=== PATIENT | male | born 1950 | race Caucasian/White ===

== ENCOUNTER 2023-10-28 11:36 | Inpatient (IN) | payer OTHER ==
--- OUTSIDE RECORDS SUMMARY | 2023-10-28 14:39 | XMS REPORT | Continuity of Care Document ---
Author Name Unknown Address [address] [facility]. [address] [place] [address] [facility] Address [address] [facility] [address] [place] [address] Care Team Providers Care Electromedical Service Engineer Name Role Phone ASHLEY LANG Attending Clinician Unavailable Litzy Sanchez Attending Clinician Unavailab JANNA Nolan Attending Clinician Unavailable OPAL MARIE Attending Clinician NATHANAEL Kelley Attending Clinician UnavailONDINA Stevenson Attending Clinician Unavailable Miguel Ángel Attending Clinician Unavailable SUKUMAR LUNDBERG Attending Clinician Unavailable CASA HAGER Attending Clinician Unavailable ANGELA BLACKMAN Attending Clinician Unavailable GENOVEVA HAN Admitting Clinician Unavaila OPAL Portillo Admitting Clinician Lisa Del Rosario Admitting Clinician Unavailable Payers Payer Name Policy Type Policy Number Effective Date Expirati on Date Source [place] [id number] 2007 00:00:00 [place] [id number] 2014 00:00:00 Problems Condition Name Condition Details Condition Category Status Onset Date Resolution Date Last Treatment Date Treating Clinician Comments Source ILIAC WING FX ILIAC WING FX Active 06/28/2022 [facility] Diagnosis Active 2021-08 00:00: 00 2022-07-18 21:44:00 Braden Aguirre T SPINE FX T SPINE FX Active 06/28/2022 [facility] Diagnosis Active 2021-08 00:00: 00 2022-06-29 00:28:00 Braden Aguirre UNSP FRACTURE OF UNSP ILIUM, INIT ENCNTR UNSP FRACTURE OF UNSP ILIUM, INIT ENCNTR Active [facility] Diagnosis Active 2022-07-18 21:44:00 Braden Aguirre Social History Smoking Status Start Date Stop Date Source Tobacco smoking status Andrew Aguirre Medications Ordered Medication Name Filled Medication Name Start Date Stop Date Current Medication? 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, Height, 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, kg, 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, Weight Braden Aguirre naproxen 500 mg oral tablet 2021-08 16:28: 00 Yes 500 mg = 1 tab, PO, Q12H, X 14 day, # 28 tab, 0 Refill(s), Pharmacy: [facility], 167.64, cm, 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, Height, 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, kg, 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, Weight [facility]oria [facility] pantoprazol e 40 mg oral enteric coated tablet 2021-08 16:28: 00 Yes 40 mg = 1 tab, PO, Daily, # 30 tab, 0 Refill(s), Pharmacy: [facility], 167.64, cm, 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, Weight [facility] melatonin 3 mg oral tablet 2021-08 16:28: 00 Yes 3 mg = 1 tab, PO, Bedtime, PRN Sleep, X 14 day, # 60 tab, 0 Refill(s), Pharmacy: [facility], 167.64, cm, 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, Height, 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, kg, 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, Weight [facility] methocarbam ol 500 mg oral tablet 2021-08 16:28: 00 Yes 500 mg = 1 tab, PO, TID, X 14 day, # 42 tab, 0 Refill(s), Pharmacy: [facility], 167.64, cm, 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, Height, 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, kg, 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, Weight [facility] metoprolol tartrate 25 mg oral tablet 2021-08 16:28: 00 Yes 25 mg = 1 tab, PO, BID, # 60 tab, 0 Refill(s), Pharmacy: [facility], 167.64, cm, 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, Height, 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, kg, 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, Weight [facility] naproxen 500 mg oral tablet 2021-08 16:28: 00 Yes 500 mg = 1 tab, PO, Q12H, X 14 day, # 28 tab, 0 Refill(s), Pharmacy: [facility], 167.64, cm, 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, Height, 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, kg, 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, Weight [facility] pantoprazol e 40 mg oral enteric coated tablet 2021-08 16:28: 00 Yes 40 mg = 1 tab, PO, Daily, # 30 tab, 0 Refill(s), Pharmacy: [facility], 167.64, cm, 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, Weight [facility] melatonin 3 mg oral tablet 2021-08 16:28: 00 Yes 3 mg = 1 tab, PO, Bedtime, PRN Sleep, X 14 day, # 60 tab, 0 Refill(s), Pharmacy: [facility], 167.64, cm, 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, Height, 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, kg, 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, Weight [facility] gabapentin 300 mg oral capsule 2021-08 16:27: 00 Yes 300 mg = 1 cap, PO, Q8H, # 63 cap, 0 Refill(s), Pharmacy: [facility], 167.64, cm, 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 (Same As: Ecotrin) [facility] sertraline 2021-08 15:00: 00 No Notes: (Same as: Zoloft) [facility] clopidogrel 2021-08 15:00: 00 No Notes: (Same As: Plavix) [facility] [place] [place] [facility] lisinopril 2021-08 15:00: 00 No Notes: (Same as: Prinivil, Zestril) [facility] aspirin 2021-08 15:00: 00 No Notes: Do not crush or chew. (Same As: Ecotrin) Memyamel Aguirre sertraline 2021-08 15:00: 00 No Notes: (Same as: Zoloft) Memyamel Aguirre clopidogrel 2021-08 15:00: 00 No Notes: (Same As: Plavix) [facility] Timothy lisinopril 2021-08 15:00: 00 No Notes: (Same as: Prinivil, Zestril) Memyamel Aguirre melatonin 2021-08 08:42: 00 No Notes: (Same as: Melatonin) Memyamel Clarkann melatonin 2021-08 08:42: 00 No Notes: (Same as: Melatonin) Braden Clarkann remove patch 2021-08 03:00: 00 No Notes: Remove patch 12 hours after applicatio n each day. Braden Clarkann remove patch 2021-08 03:00: 00 No Notes: Remove patch 12 hours after applicatio n each day. Memyamel Clarkann enoxaparin 2021-08 23:00: 00 No Notes: (Same as: Lovenox) [facility] [place] [facility] enoxaparin 2021-08 23:00: 00 No Notes: (Same as: Lovenox) Braden Aguirre Robaxin 2021-08 19:00: 00 No Notes: (Same as:Robaxin ) [facility] [place] [facility] Robaxin 2021-08 19:00: 00 No Notes: (Same as:Robaxin ) Memyamel Clarkann lidocaine 4% topical film 2021-08 18:00: 00 No Notes: Patch is applied to intact skin to cover painful area for up to 12 hours in a 24-hour period (12 hours on and 12 hours off). Please indicate the location of applicatio n site. Site 1: Remove old patch before applicatio n of new patch. (Same as Aspercreme Lidocaine Patch) Memyamel Clarkann lidocaine 4% topical film 2021-08 18:00: 00 No Notes: Patch is applied to intact skin to cover painful area for up to 12 hours in a 24-hour period (12 hours on and 12 hours off). Please indicate the location of applicatio n site. Site 1: Remove old patch before applicatio n of new patch. (Same as Aspercreme Lidocaine Patch) Memyamel Aguirre metoprolol tartrate 2021-08 15:00: 00 No Notes: (Same as: Lopressor) [facility] [place] [place] [facility] naproxen 2021-08 15:00: 00 No Notes: (Same as: Naprosyn) Take with food. Memyamel Aguirre pantoprazol e 2021-08 15:00: 00 No Notes: Tablet should not be chewed or crushed. (Same as: Protonix) Memyamel Aguirre metoprolol tartrate 2021-08 15:00: 00 No Notes: (Same as: Lopressor) [facility] [place] [place] [facility] naproxen 2021-08 15:00: 00 No Notes: (Same as: Naprosyn) Take with food. Memyamel Aguirre pantoprazol e 2021-08 15:00: 00 No Notes: Tablet should not be chewed or crushed. (Same as: Protonix) Braden Aguirre lisinopril 10 mg oral tablet 2021-08 14:28: 00 Yes PO, TAKE ONE (1) TABLET(S) BY MOUTH ONCE A DAY., # 90 tab Memyamel Aguirre atorvastati n 40 mg oral tablet 2021-08 14:28: 00 Yes PO, TAKE 1 TABLET BY MOUTH ONCE DAILY, # 90 tab Braden Aguirre lisinopril 10 mg oral tablet 2021-08 14:28: 00 Yes PO, TAKE ONE (1) TABLET(S) BY MOUTH ONCE A DAY., # 90 tab Braden Aguirre atorvastati n 40 mg oral tablet 2021-08 14:28: 00 Yes PO, TAKE 1 TABLET BY MOUTH ONCE DAILY, # 90 tab Braden Clarkann clopidogrel 75 mg oral tablet 2021-08 14:28: 00 Yes PO, TAKE ONE (1) TABLET(S) BY MOUTH ONCE A DAY., # 90 tab Braden Aguirre clopidogrel 75 mg oral tablet 2021-08 14:28: 00 Yes PO, TAKE ONE (1) TABLET(S) BY MOUTH ONCE A DAY., # 90 tab Braden Aguirre cyclobenzap rine 10 mg oral tablet 2021-08 14:28: 00 No PO, TAKE ONE (1) TABLET(S) BY MOUTH TWICE A DAY NEEDED., # 60 tab Braden l Timothy gabapentin 100 mg oral capsule 2021-08 14:28: 00 No PO, TAKE ONE (1) CAPSULE BY MOUTH 2 TIMES A DAY., # 180 cap Braden Aguirre cyclobenzap rine 10 mg oral tablet 2021-08 14:28: 00 No PO, TAKE ONE (1) TABLET(S) BY MOUTH TWICE A DAY NEEDED., # 60 tab [facility]aden [facility] [place] [facility] gabapentin 100 mg oral capsule 2021-08 14:28: 00 No PO, TAKE ONE (1) CAPSULE BY MOUTH 2 TIMES A DAY., # 180 cap Braden l [facility] [place] [facility] enoxaparin 2021-08 06:00: 00 No Notes: (Same as: Lovenox) [facility] [place] [place] [facility] enoxaparin 2021-08 06:00: 00 No Notes: (Same as: Lovenox) Braden l Timothy acetaminoph en 2021-08 05:23: 00 No Notes: Max acetaminop hen 4000 mg/day (4 gm/day). (Same as: Tylenol Extra Strength) [facility] [place] [place] [facility] gabapentin 2021-08 05:23: 00 No Notes: (Same as: Neurontin) [facility] [place] [facility] acetaminoph en 2021-08 05:23: 00 No Notes: Max acetaminop hen 4000 mg/day (4 gm/day). (Same as: Tylenol Extra Strength) [facility] [place] [facility] gabapentin 2021-08 05:23: 00 No Notes: (Same as: Neurontin) [facility] morphine Sulfate 2021-08 03:24: 00 No Notes: (Same as:MORPhin e Sulfate) [facility] morphine Sulfate 2021-08 03:24: 00 No Notes: (Same as:MORPhin e Sulfate) [facility] Saline Flush 0.9% 2021-08 00:58: 00 No Notes: Same as: BD Posiflush Sterile [facility] morphine Sulfate 2021-08 00:58: 00 No Notes: (Same as:MORPhin e Sulfate) [facility] [place] [facility] ondansetron 2021-08 00:58: 00 No Notes: (Same as: Dione) MEDICATION WASTE Product Size: 4 mg Product Wasted: ___ mg [facility] [place] [place] [facility] Saline Flush 0.9% 2021-08 00:58: 00 No Notes: Same as: BD Posiflush Sterile [facility] [place] [place] [facility] morphine Sulfate 2021-08 00:58: 00 No Notes: (Same as:MORPhin e Sulfate) [facility] ondansetron 2021-08 00:58: 00 No Notes: (Same as: Dione) MEDICATION WASTE Product Size: 4 mg Product Wasted: ___ mg [facility] [place] [facility] Vital Signs Vital Name Observation Time Observation Value Comments S ource Height 2022-06-30 16:59:00 5 [ft_i] [facility] [place] [facility] Weight 2022-06-30 16:59:00 [facility] [place] [place] [facility] Heart Rate 2022-06-30 14:04:56 [facility] [place] [place] [facility] Temperature Oral (F) 2022-06-30 14:04:37 98.1 F [facility] Systolic (mm Hg) 2022-06-30 14:04:17 [facility] Diastolic (mm Hg) 2022-06-30 14:04:17 [facility] Heart Rate 2022-06-30 14:04:17 [facility] [place] [facility] Heart Rate 2022-06-30 09:14:22 [facility] Respitory Rate 2022-06-30 09:14:22 [facility] Systolic (mm Hg) 2022-06-30 09:14:17 [facility] Diastolic (mm Hg) 2022-06-30 09:14:17 [facility] Temperature Oral (F) 2022-06-30 09:14:08 97.4 F [facility] Respitory Rate 2022-06-30 05:58:33 [facility] Systolic (mm Hg) 2022-06-30 05:58:30 [facility] [place] [facility] Diastolic (mm Hg) 2022-06-30 05:58:30 [facility] [place] [facility] Temperature Oral (F) 2022-06-30 05:58:08 98 F [facility] Respitory Rate 2022-06-30 01:40:43 [facility] Height 2022-06-29 11:32:00 167.64 cm [facility] Weight 2022-06-29 11:32:00 [facility] BMI Calculated 2022-06-29 11:32:00 [facility] Height 2022-06-28 23:35:00 167.64 cm [facility] BMI Calculated 2022-06-28 23:35:00 [facility] Weight 2022-06-28 23:35:00 [facility] [place] [facility] Encounters Start Date/Time End Date/Time Encounter Type Admission Type Attending [facility] Facility Care Department Encounter ID Source 2023-10-09 23:27:00 2023-10-28 13:02:00 Inpatient ASHLEY SMITH [facility] MED [id number] [address] [place] [address] 2023-10-09 12:55:00 2023-10-09 15:17:00 Emergency ER Litzy Sanchez [facility] [id number] [facility] 2023-10-09 12:55:00 2023-10-09 15:17:00 emergency [facility] [id number] 2023-10-08 08:43:00 2023-10-08 08:43:00 Outpatient EL DJANNA MOYA [facility] [id number] [facility] 2023-07-05 08:57:00 2023-07-05 08:57:00 Outpatient EL D'CORTESJANNA Hester [facility] [id number] [facility] 2023-03-29 09:20:00 2023-03-29 09:20:00 Outpatient EL DJANNA MOYA [facility] [id number] [facility] 2022-12-20 08:27:00 2022-12-20 08:27:00 Outpatient MAURO DJANNA MOYA [facility] [id number] [facility] 2022-10-01 08:31:00 2022-10-01 08:31:00 Outpatient EL DGRIFFIN JANNA [facility] [id number] [facility] 2022-07-02 14:07:00 2022-07-02 14:07:00 Outpatient MAURO DJANNA MOYA [facility] [id number] [facility] 2022-06-28 23:35:00 2022-06-30 23:00:00 Observatio n [facility] [id number] [facility] 2022-06-28 15:23:00 2022-06-30 17:00:00 Outpatient OPAL SIMON [facility] [id number] [facility] 2022-06-28 10:58:00 2022-06-28 16:08:00 emergency [id number] 31 2022-06-28 10:58:00 2022-06-28 16:08:00 Emergency TR NATHANAEL CASTANON [facility] [id number] [facility] 2022-03-23 12:57:00 2022-03-23 12:57:00 Outpatient ONDINA GEORGE [facility] [id number] [facility] 2022-03-02 09:14:00 2022-03-02 09:14:00 Outpatient EL D'CORTESSARITHATA [facility] [id number] [facility] 2021-11-07 10:10:00 2021-11-07 10:10:00 Outpatient EL D'CORTESSARITHATA [facility] [id number] [facility] 2021-11-03 09:28:00 2021-11-03 09:28:00 Outpatient EL D'CORTESSARITHATA [facility] [id number] [facility] 2021-10-25 09:09:00 2021-10-25 09:09:00 Outpatient EL D'CORTESSARITHA HesterTA [facility] [id number] [facility] 2021-07-24 09:12:00 2021-07-24 09:12:00 Outpatient EL D'CORTES JANNA [facility] [id number] [facility] 2021-06-14 12:34:00 2021-06-14 12:34:00 Outpatient EL D'CORTESSARITHATA [facility] [id number] [facility] 2021-04-24 08:53:00 2021-04-24 08:53:00 Outpatient EL D'CORTESSARITHA HesterTA [facility] [id number] [facility] 2021-01-13 08:44:00 2021-01-13 08:44:00 Outpatient EL D'CORTESJANNA [facility] [id number] [facility] 2020-10-13 09:01:00 2020-10-13 09:01:00 Outpatient UR D'JANNA CORTES [facility] [id number] [facility] 2020-10-03 09:31:00 2020-10-03 09:31:00 Outpatient EL D'CORTESJANNA Hester [facility] [id number] [facility] 2020-09-03 12:05:00 2020-09-03 12:05:00 Outpatient EL D'CORTESJANNA Hester [facility] [id number] [facility] 2020-06-23 08:02:00 2020-06-23 08:02:00 Outpatient EL DJANNA MOYA [facility] [id number] [facility] 2020-06-22 02:24:00 2020-06-22 02:24:00 Outpatient Young_J MMG [facility] [id number] [facility] 2020-05-25 08:53:00 2020-05-25 08:53:00 Outpatient EL D'JANNA CORTES [facility] [id number] [facility] 2019-08-27 08:56:00 2019-08-27 08:56:00 Outpatient EL D'JANNA CORTES [facility] [id number] [facility] 2019-08-12 07:37:00 2019-08-12 07:37:00 Outpatient ONDINA KNOWLES [facility] [id number] [facility] 2019-05-21 08:59:00 2019-05-21 08:59:00 Outpatient EL DJANNA MOYA [facility] [id number] [facility] 2019-03-04 08:09:00 2019-03-04 08:09:00 Outpatient EL D'SARITHA CORTESTA [facility] [id number] [facility] 2018-12-24 09:40:00 2018-12-24 09:40:00 Outpatient EL DJANNA MOYA [facility] [id number] [facility] 2018-12-01 08:51:00 2018-12-01 08:51:00 Outpatient EL D'CORTESJANNA Hester [facility] [id number] [facility] 2018-09-02 09:14:00 2018-09-02 09:14:00 Outpatient EL D'CORTESJANNA Hester [facility] [id number] [facility] 2018-06-04 09:48:00 2018-06-04 09:48:00 Outpatient EL D'JANNA CORTES [facility] [id number] [facility] 2018-04-09 08:02:00 2018-04-09 08:02:00 Outpatient ONDINA KNOWLES [facility] [id number] [facility] 2018-02-28 08:30:00 2018-02-28 08:30:00 Outpatient MAURO DJANNA MOYA [facility] [id number] [facility] 2017-11-22 08:33:00 2017-11-22 08:33:00 Outpatient EL D'JANNA CORTES [facility] [id number] [facility] 2017-08-30 08:45:00 2017-08-30 08:45:00 Outpatient EL D'JANNA CORTES [facility] [id number] [facility] 2017-07-12 01:28:00 2017-07-12 01:28:00 Outpatient Miguel Ángel HUTCHINSON [facility] [id number] [facility] 2017-06-17 08:32:00 2017-06-17 08:32:00 Outpatient SUKUMAR SMITH [facility] [id number] [facility] 2017-05-27 09:44:00 2017-05-27 09:44:00 Outpatient EL DJANNA MOYA [facility] [id number] [facility] 2017-05-20 08:23:00 2017-05-20 08:23:00 Outpatient SUKUMAR SMITH [facility] [id number] [facility] 2017-02-19 08:07:00 2017-02-19 08:07:00 Outpatient EL D'CORTESAJNNA Hester [facility] [id number] [facility] 2016-08-01 08:37:00 2016-08-01 08:37:00 Outpatient EL D'CORTESJANNA Hester [facility] [id number] [facility] 2016-05-09 08:58:00 2016-05-09 08:58:00 Outpatient EL D'JANNA CORTES [facility] [id number] [facility] 2016-04-02 08:49:00 2016-04-02 08:49:00 Outpatient ONDINA KNOWLES [facility] [id number] [facility] 2016-02-10 08:35:00 2016-02-10 08:35:00 Outpatient EL D'CORTESJANNA Hester [facility] [id number] [facility] 2015-11-08 08:57:00 2015-11-08 08:57:00 Outpatient EL DJANNA MOYA [facility] [id number] [facility] 2015-08-01 08:35:00 2015-08-01 08:35:00 Outpatient EL D'CORTESJANNA Hester [facility] [id number] [facility] 2015-05-16 11:20:00 2015-05-16 11:20:00 Outpatient ONDINA KNOWLES [facility] [id number] [facility] 2015-04-18 08:35:00 2015-04-18 08:35:00 Outpatient EL JANNA LIMON [facility] [id number] [facility] 2014-11-22 08:29:00 2014-11-22 08:29:00 Outpatient MAURO LIMON JANNA [facility] [id number] [facility] 2014-11-02 09:03:00 2014-11-02 09:03:00 Outpatient EL JANNA LIMON [facility] [id number] [facility] 2014-07-06 08:58:00 2014-07-06 08:58:00 Outpatient CASA PATHAK [facility] [id number] [facility] 2014-01-13 09:05:00 2014-01-13 09:05:00 Outpatient MAURO LIMON JANNA [facility] [id number] [facility] 2013-06-13 08:48:00 2013-06-13 08:48:00 Outpatient MAURO LIMON AJNNA [facility] [id number] [facility] 2005-08-31 09:17:00 2005-08-31 09:17:00 Outpatient ANGELA MAST [facility] [id number] [facility] Results Test Description Test Time Test Comments Results Result Co mments Source [facility] [facility]MsrmwawIDDGAI0580-54-40 19:33:34* Test Item Value Reference Range Interpretation Comme nts RADRPT (test code = RADRPT) EXAM: XR LUMBAR SPINE 2 VIEWSDATE: 06/29/2022 4:57INDICATION: - Uprights out of brace when ableNondisplaced left transverse process fractures of L3 and L4. Nondisplaced fracture of the L5 spinous process also seen by CT.COMPARISON: None.TECHNIQUE: AP and lateral radiographs of the lumbar spine.FINDINGS: 5 lumbar type, non-rib bearing vertebral bodies are present. Vertebral body heights are preserved. Mild degenerative disc disease throughout the lumbar spine with the largest anterior osteophytes at L2-3. There is scoliosis convex to the left centered at L3. Alignment is otherwise normal. The fractures of the vertebral appendages seen by CT are not visible on these radiographs.Abdominal aortic aneurysm with extensive calcified atherosclerosis in the abdominal aorta and the iliac arteries noted.IMPRESSION: Left L3 and L4 transverse process fractures and left L5 spinous process fracture are not visible on these radiographs. Alignment of the lumbar spine remains normal. [place] [id number] 17:35:22* Test Item Value Reference Range Interpretation Comme nts RADRPT (test code = RADRPT) EXAM: XR LEFT SHOULDER 3 VIEWS DATE: 06/29/2022 9:41INDICATION: - painCOMPARISON: None.TECHNIQUE: 3 views of the shoulderFINDINGS: No acute fracture or malalignment is identified. There is osteophyte formation of the acromioclavicular joint. Significant reduction in the acromiohumeral distance.No soft tissue abnormality is identified.IMPRESSION: No acute abnormality. Acromioclavicular and glenohumeral joint degenerative changes with reduction acromion humeral distance. Consider chronic rotator cuff injury. [place] [id number] 17:35:22* Test Item Value Reference Range Interpretation Comme nts RADRPT (test code = RADRPT) EXAM: XR LEFT SHOULDER 3 VIEWS DATE: 06/29/2022 9:41INDICATION: - painCOMPARISON: None.TECHNIQUE: 3 views of the shoulderFINDINGS: No acute fracture or malalignment is identified. There is osteophyte formation of the acromioclavicular joint. Significant reduction in the acromiohumeral distance.No soft tissue abnormality is identified.IMPRESSION: No acute abnormality. Acromioclavicular and glenohumeral joint degenerative changes with reduction acromion humeral distance. Consider chronic rotator cuff injury. [place] [id number] 16:52:03* Test Item Value Reference Range Interpretation Comme nts RADRPT (test code = RADRPT) EXAM: XR RIGHT FOOT 3 VIEWSDATE: 06/29/2022 9:41INDICATION: - painCOMPARISON: NoneTECHNIQUE: AP, lateral and oblique radiographs of the footFINDINGS: No acute fracture or malalignment is identified. Calcaneal enthesopathy is present.No soft tissue abnormality is identified.IMPRESSION:1. No acute abnormality.2. Calcaneal enthesophytes. [facility]IgxlaqzBDXOTH8017-33-65 16:52:03* Test Item Value Reference Range Interpretation Comme [facility] RADRPT (test code = RADRPT) EXAM: XR RIGHT FOOT 3 VIEWSDATE: 06/29/2022 9:41INDICATION: - painCOMPARISON: NoneTECHNIQUE: AP, lateral and oblique radiographs of the footFINDINGS: No acute fracture or malalignment is identified. Calcaneal enthesopathy is present.No soft tissue abnormality is identified.IMPRESSION:1. No acute abnormality.2. Calcaneal enthesophytes. [facility]neBHCLHX6357-69-14 15:49:53* Test Item Value Reference Range Interpretation Comme [facility] RADRPT (test code = RADRPT) EXAM: CT CHEST WITH CONTRASTEXAM: CT ABDOMEN AND PELVIS WITH CONTRASTDATE: 06/29/2022 0:12 INDICATION: Outside study.ADDITIONAL INFORMATION: 72 M w history of HTN and CAD with CABG present as a Transfer s/p fall while mowing his lawn, 1 day prior to presentation reports pain in his flanks and lower back. COMPARISON: NoneEXAM INFORMATION: Outside [place] examination [place] [facility] [place]. Axial CT images of the chest, abdomen, and pelvis were obtained. Coronal and sagittal reformatted images are provided. There is interval performance mid L1 is uploaded to PACS the study images. FINDINGS: FINDINGS:Lines, tubes, hardware: Surgical sternotomy wires seen in place.Lower Neck: Supraclavicular soft tissues are unremarkable. Thyroid gland is unremarkable.Thoracic Aorta and Mediastinum: Aberrant right subclavian artery. Mediastinal lymphadenopathy measuring up to 1.2 cm in the pretracheal region (2:39). Status post CABG with normal heart size. No pericardial effusion. Normal caliber of both pulmonary trunk 2.5 cm and ascending aorta 3.2 cm measuring the same level. Severe atherosclerotic calcification of the aortic arch, coronary arteries.Lungs, Pleura, Diaphragm: Subpleural and peripheral cystic changes particularly at the apices. Peripheral reticular opacities greater at the lung bases. Mild bronchiectasis and bronchial wall thickening. Patchy peripheral areas of groundglass and consolidation in the right greater than left lower lobes are not typical of contusion and may relate to atelectasis, infection, or aspiration. No pneumothorax. No pleural effusion.Other chest: Mild left axillary lymphadenopathy for example 9 mm subpectoral lymph node on 2:29.Liver and biliary tree: No evidence of injury. No biliary abnormality. Gallbladder: Single small stone within the gallbladder.Pancreas: No evidence of injury.Spleen: No evidence of injury. Adrenals: Normal morphology.Kidneys and ureters: No evidence of injury. Vascular calcifications present. No hydronephrosis. Symmetric enhancement.Bladder: Partially distended and unremarkable.Reproductive organs: Central prostatic calcification.Gastrointesti nal tract: Localized area of heterogeneous increased attenuation within the fat along mesenteric vessels in the left abdomen right abdomen compatible with mesenteric injury. No changes in the bowel to suggest bowel injury.Peritoneum and retroperitoneum: No fluid collections or free air.Lymph nodes: No lymphadenopathy in the abdomen or pelvis..Vasculature: 3.6 cm infrarenal fusiform abdominal aortic aneurysm with partial thrombosis. Severe atherosclerotic calcification of the abdominal aorta and branches. Thrombosed saccular aneurysm versus intramural hematoma along the right common iliac artery (2:190). Spine/ Bones: Nondisplaced fracture of the posterior left iliac bone at the level of the SI joint. Nondisplaced acute fracture of the left transverse process at L3 and L4. Additional nondisplaced fracture of the spinous process of L5. Soft tissues: Gas is noted within the musculature lateral to the left scapula, likely related to trauma. Stranding present in the subcutaneous fat laterally at the left hip and posteriorly at the left flank which may represent contusion.IMPRESSION: 1. Acute nondisplaced fracture of the left iliac wing at the level of the sacroiliac joint. Also fractures of the left transverse processes of L3 and L4 and of the spinous process of L5.1. Localized stranding in the mesentery in the right lower quadrant. Compatible with mesenteric injury in the setting of trauma. 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 Superficial contusion laterally at the left hip and posteriorly over the left flank. Gas within musculature lateral to the left scapula is also favored traumatic in origin.3. Bilateral lower lobe right greater than left patchy groundglass opacities. May represent atelectasis, infection, or and/or aspiration. Appearance not typical of contusion. 4. Infrarenal abdominal aortic aneurysm (3.6 cm) and small thrombosed saccular aneurysm versus intramural hematoma at the right common iliac artery.5. Mild left axillary and mediastinal lymphadenopathy, indeterminate.6. Additional incidental findings detailed above. [facility] PoyedixANFNDP2542-57-52 15:49:53* Test Item Value Reference Range Interpretation Comme nts RADRPT (test code = RADRPT) EXAM: CT CHEST WITH CONTRASTEXAM: CT ABDOMEN AND PELVIS WITH CONTRASTDATE: 06/29/2022 0:12 INDICATION: Outside study.ADDITIONAL INFORMATION: 72 M w history of HTN and CAD with CABG present as a Transfer s/p fall while mowing his lawn, 1 day prior to presentation reports pain in his flanks and lower back. COMPARISON: NoneEXAM INFORMATION: [place] [facility]. Axial CT images of the chest, abdomen, and pelvis were obtained. Coronal and sagittal reformatted images are provided. There is interval performance mid L1 is uploaded to PACS the study images. FINDINGS: FINDINGS:Lines, tubes, hardware: Surgical sternotomy wires seen in place.Lower Neck: Supraclavicular soft tissues are unremarkable. Thyroid gland is unremarkable.Thoracic Aorta and Mediastinum: Aberrant right subclavian artery. Mediastinal lymphadenopathy measuring up to 1.2 cm in the pretracheal region (2:39). Status post CABG with normal heart size. No pericardial effusion. Normal caliber of both pulmonary trunk 2.5 cm and ascending aorta 3.2 cm measuring the same level. Severe atherosclerotic calcification of the aortic arch, coronary arteries.Lungs, Pleura, Diaphragm: Subpleural and peripheral cystic changes particularly at the apices. Peripheral reticular opacities greater at the lung bases. Mild bronchiectasis and bronchial wall thickening. Patchy peripheral areas of groundglass and consolidation in the right greater than left lower lobes are not typical of contusion and may relate to atelectasis, infection, or aspiration. No pneumothorax. No pleural effusion.Other chest: Mild left axillary lymphadenopathy for example 9 mm subpectoral lymph node on 2:29.Liver and biliary tree: No evidence of injury. No biliary abnormality. Gallbladder: Single small stone within the gallbladder.Pancreas: No evidence of injury.Spleen: No evidence of injury. Adrenals: Normal morphology.Kidneys and ureters: No evidence of injury. Vascular calcifications present. No hydronephrosis. Symmetric enhancement.Bladder: Partially distended and unremarkable.Reproductive organs: Central prostatic calcification.Gastrointesti nal tract: Localized area of heterogeneous increased attenuation within the fat along mesenteric vessels in the left abdomen right abdomen compatible with mesenteric injury. No changes in the bowel to suggest bowel injury.Peritoneum and retroperitoneum: No fluid collections or free air.Lymph nodes: No lymphadenopathy in the abdomen or pelvis..Vasculature: 3.6 cm infrarenal fusiform abdominal aortic aneurysm with partial thrombosis. Severe atherosclerotic calcification of the abdominal aorta and branches. Thrombosed saccular aneurysm versus intramural hematoma along the right common iliac artery (2:190). Spine/ Bones: Nondisplaced fracture of the posterior left iliac bone at the level of the SI joint. Nondisplaced acute fracture of the left transverse process at L3 and L4. Additional nondisplaced fracture of the spinous process of L5. Soft tissues: Gas is noted within the musculature lateral to the left scapula, likely related to trauma. Stranding present in the subcutaneous fat laterally at the left hip and posteriorly at the left flank which may represent contusion.IMPRESSION: 1. Acute nondisplaced fracture of the left iliac wing at the level of the sacroiliac joint. Also fractures of the left transverse processes of L3 and L4 and of the spinous process of L5.1. Localized stranding in the mesentery in the right lower quadrant. Compatible with mesenteric injury in the setting of trauma. 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 Superficial contusion laterally at the left hip and posteriorly over the left flank. Gas within musculature lateral to the left scapula is also favored traumatic in origin.3. Bilateral lower lobe right greater than left patchy groundglass opacities. May represent atelectasis, infection, or and/or aspiration. Appearance not typical of contusion. 4. Infrarenal abdominal aortic aneurysm (3.6 cm) and small thrombosed saccular aneurysm versus intramural hematoma at the right common iliac artery.5. Mild left axillary and mediastinal lymphadenopathy, indeterminate.6. Additional incidental findings detailed above. [facility] HospitalRdumtahGJTHMBEDXB9110-68-14 12:40:00* Test Item Value Reference Range Interpretation Comme nts Platelet (test code = Platelet) 189 133-450 [facility]qqhpglJVPVEGOIDZ3797-24-99 12:40:00* Test Item Value Reference Range Interpretation Comme nts MPV (test code = MPV) 9.6 7.4-10.4 [facility]2022-11-25 12:40:00* Test Item Value Reference Range Interpretation Comme nts Glucose Lvl (test code = Glucose Lvl) 115 70-99 [facility]2022-11-25 12:40:00* Test Item Value Reference Range Interpretation Comme nts BUN (test code = BUN) 18 7-22 [facility]2022-11-25 12:40:00* Test Item Value Reference Range Interpretation Comme nts Creatinine Lvl (test code = Creatinine Lvl) 0.85 0.50-1.40 [facility]2022-11-25 12:40:00* Test Item Value Reference Range Interpretation Comme nts Sodium Lvl (test code = Sodium Lvl) 137 135-145 [facility]2022-11-25 12:40:00* Test Item Value Reference Range Interpretation Comme nts Potassium Lvl (test code = P otassium Lvl) 3.8 3.5-5.1 [facility]2022-11-25 12:40:00* Test Item Value Reference Range Interpretation Comme nts Chloride Lvl (test code = Chloride Lvl) 104 95-109 [facility]2022-11-25 12:40:00* Test Item Value Reference Range Interpretation Comme nts CO2 (test code = CO2) 23 24-32 [facility]2022-11-25 12:40:00* Test Item Value Reference Range Interpretation Comme nts Calcium Lvl (test code = Calcium Lvl) 9.1 8.5-10.5 [facility]2022-11-25 12:40:00* Test Item Value Reference Range Interpretation Comme nts AGAP (test code = AGAP) 13.8 10.0-20.0 [facility]2022-11-25 12:40:00* Test Item Value Reference Range Interpretation Comme nts eGFR (test code = eGFR) 91 [facility] TaylorJaiqzxlAUDLKGGYK1060-51-55 12:40:00* Test Item Value Reference Range Interpretation Comme nts Glucose Lvl (test code = Glucose Lvl) 115 70-99 [facility] TaylorKpltrvtZKXTRTQEO1855-28-86 12:40:00* Test Item Value Reference Range Interpretation Comme nts BUN (test code = BUN) 18 7-22 [facility] TaylorWooxwddBDPTFGDUO0737-72-35 12:40:00* Test Item Value Reference Range Interpretation Comme nts Creatinine Lvl (test code = Creatinine Lvl) 0.85 0.50-1.40 [facility] TaylorJxnbmnwYHOGWLVBV8136-99-34 12:40:00* Test Item Value Reference Range Interpretation Comme nts Sodium Lvl (test code = Sodium Lvl) 137 135-145 [facility] TaylorRydmirdIHBVJGKKC5588-16-14 12:40:00* Test Item Value Reference Range Interpretation Comme nts Potassium Lvl (test code = P otassium Lvl) 3.8 3.5-5.1 [facility] TaylorPdicnerHAPQDPZRM3575-98-67 12:40:00* Test Item Value Reference Range Interpretation Comme nts Chloride Lvl (test code = Chloride Lvl) 104 95-109 [facility] TaylorTuubljaMROZXAGWE2031-46-72 12:40:00* Test Item Value Reference Range Interpretation Comme nts CO2 (test code = CO2) 23 24-32 [facility] TaylorNoyzpccSGNKSINRC9995-82-94 12:40:00* Test Item Value Reference Range Interpretation Comme nts Calcium Lvl (test code = Calcium Lvl) 9.1 8.5-10.5 [facility] TaylorDvmgohzVGDYEVQRC0435-34-80 12:40:00* Test Item Value Reference Range Interpretation Comme nts AGAP (test code = AGAP) 13.8 10.0-20.0 [facility] TaylorSsvgquxLCKLHGRKZ6235-46-53 12:40:00* Test Item Value Reference Range Interpretation Comme nts eGFR (test code = eGFR) 91 [facility] HospitalQhkbfdwMLUUDCNBWP0633-20-91 12:40:00* Test Item Value Reference Range Interpretation Comme nts Segs (test code = Segs) 72.0 45.0-75.0 [facility] HospitalDihifftKICIBNAFBO6056-52-25 12:40:00* Test Item Value Reference Range Interpretation Comme nts Lymphocytes (test code = Lymphocytes) 16.7 20.0-40.0 [facility] HospitalDmdhxvvLLYLDWKUMI7598-07-45 12:40:00* Test Item Value Reference Range Interpretation Comme nts Monocytes (test code = Monocytes) 6.3 2.0-12.0 [facility] HospitalSyarakzSCKGPJVRIK3508-39-72 12:40:00* Test Item Value Reference Range Interpretation Comme nts Eosinophils (test code = Eosinophils) 4.5 <=4.0 [place] 173692-11-25 12:40:00* Test Item Value Reference Range Interpretation Comme nts Basophils (test code = Basophils) 0.5 <=1.0 [facility] HospitalLsqigxjZPWLBBZHQY8357-08-92 12:40:00* Test Item Value Reference Range Interpretation Comme nts Neutrophils # (test code = N eutrophils #) 5.4 1.5-8.1 [facility] HospitalFqobvcyDBFJQXLEIM2987-48-62 12:40:00* Test Item Value Reference Range Interpretation Comme nts Lymphocytes # (test code = L ymphocytes #) 1.3 1.0-5.5 [facility] HospitalOcjcwvfNFIWXJNSZU1011-41-67 12:40:00* Test Item Value Reference Range Interpretation Comme nts Monocytes # (test code = Monocytes #) 0.5 <=0.8 [place] 173692-11-25 12:40:00* Test Item Value Reference Range Interpretation Comme nts Eosinophils # (test code = E osinophils #) 0.3 <=0.5 [place] 173692-11-25 12:40:00* Test Item Value Reference Range Interpretation Comme nts WBC (test code = WBC) 7.5 3.7-10.4 [facility] HospitalZhkktzuNISCCDJDVC3553-84-33 12:40:00* Test Item Value Reference Range Interpretation Comme nts RBC (test code = RBC) 3.56 4.70-6.10 [facility] HospitalLpiqejfFXPVYUIXWB7338-21-18 12:40:00* Test Item Value Reference Range Interpretation Comme nts Hgb (test code = Hgb) 10.2 14.0-18.0 [place] 173692-11-25 12:40:00* Test Item Value Reference Range Interpretation Comme nts Hct (test code = Hct) 30.4 42.0-54.0 [facility] HospitalQixegstMSONDFQGHM1333-98-88 12:40:00* Test Item Value Reference Range Interpretation Comme nts MCV (test code = MCV) 85.3 80.0-94.0 [facility] HospitalYfygqmhAGTIJJJEME9676-89-68 12:40:00* Test Item Value Reference Range Interpretation Comme nts MCH (test code = MCH) 28.6 pg 27.0-31.0 [facility] HospitalSnkifleDNUXPVMIPL0331-06-74 12:40:00* Test Item Value Reference Range Interpretation Comme nts MCHC (test code = MCHC) 33.6 32.0-36.0 [facility] HospitalXtsdprwAPCGLMLCEK0404-30-68 12:40:00* Test Item Value Reference Range Interpretation Comme nts RDW (test code = RDW) 14.6 11.5-14.5 [facility] HospitalTqhaivaTKQBSUECTS3674-35-79 12:40:00* Test Item Value Reference Range Interpretation Comme nts Platelet (test code = Platelet) 189 133-450 [facility] HospitalBbxcmtbRRCLRFMKDB5741-76-75 12:40:00* Test Item Value Reference Range Interpretation Comme nts MPV (test code = MPV) 9.6 7.4-10.4 [facility] HospitalMmwjgyyBZAYTAAQZP6351-65-28 12:40:00* Test Item Value Reference Range Interpretation Comme nts Segs (test code = Segs) 72.0 45.0-75.0 [facility] HospitalRfeajfuIHXIPINSUJ6212-55-83 12:40:00* Test Item Value Reference Range Interpretation Comme nts Lymphocytes (test code = Lymphocytes) 16.7 20.0-40.0 [facility] HospitalNefbglcBDZMLMPVTK1200-72-50 12:40:00* Test Item Value Reference Range Interpretation Comme nts Monocytes (test code = Monocytes) 6.3 2.0-12.0 [facility] HospitalXuhxdchMJSPNXMBHU1684-82-58 12:40:00* Test Item Value Reference Range Interpretation Comme nts Eosinophils (test code = Eosinophils) 4.5 <=4.0 [facility] HospitalQigpawmNLZUDYDGFO8643-94-51 12:40:00* Test Item Value Reference Range Interpretation Comme nts Basophils (test code = Basophils) 0.5 <=1.0 [place] 173692-11-25 12:40:00* Test Item Value Reference Range Interpretation Comme nts Neutrophils # (test code = N eutrophils #) 5.4 1.5-8.1 [place] 173692-11-25 12:40:00* Test Item Value Reference Range Interpretation Comme nts Lymphocytes # (test code = L ymphocytes #) 1.3 1.0-5.5 [place] 173692-11-25 12:40:00* Test Item Value Reference Range Interpretation Comme nts Monocytes # (test code = Monocytes #) 0.5 <=0.8 [place] 173692-11-25 12:40:00* Test Item Value Reference Range Interpretation Comme nts Eosinophils # (test code = E osinophils #) 0.[address] <=[address]5 [facility] HospitalMcjqiirHZCIISARGQ7509-28-86 12:40:00* Test Item Value Reference Range Interpretation Comme nts WBC (test code = WBC) 7.5 3.7-10.4 [facility] HospitalOlwbpcfOXOZVTXAIU8293-65-46 12:40:00* Test Item Value Reference Range Interpretation Comme nts RBC (test code = RBC) 3.56 4.70-6.10 [facility] HospitalKwlneauNKYXSYXBYU1605-01-27 12:40:00* Test Item Value Reference Range Interpretation Comme nts Hgb (test code = Hgb) 10.2 14.0-18.0 [place] 173692-11-25 12:40:00* Test Item Value Reference Range Interpretation Comme nts Hct (test code = Hct) 30.4 42.0-54.0 [place] 173692-11-25 12:40:00* Test Item Value Reference Range Interpretation Comme nts MCV (test code = MCV) 85.3 80.0-94.0 [place] 173692-11-25 12:40:00* Test Item Value Reference Range Interpretation Comme nts MCH (test code = MCH) 28.6 pg 27.0-31.0 [place] 173692-11-25 12:40:00* Test Item Value Reference Range Interpretation Comme nts MCHC (test code = MCHC) 33.6 32.0-36.0 [place] 173692-11-25 12:40:00* Test Item Value Reference Range Interpretation Comme nts RDW (test code = RDW) 14.6 11.5-14.5 [facility] HospitalCzvenckJCWCGICOWH4184-15-24 12:40:00* Test Item Value Reference Range Interpretation Comme nts Platelet (test code = Platelet) 189 133-450 [facility]BikxqdlGCTNTXXYCE0024-19-25 12:40:00* Test Item Value Reference Range Interpretation Comme nts MPV (test code = MPV) 9.6 7.4-10.4 [facility]2022-11-25 12:40:00* Test Item Value Reference Range Interpretation Comme nts Glucose Lvl (test code = Glucose Lvl) 115 70-99 [facility]2022-11-25 12:40:00* Test Item Value Reference Range Interpretation Comme nts BUN (test code = BUN) 18 7-22 [facility]2022-11-25 12:40:00* Test Item Value Reference Range Interpretation Comme nts Creatinine Lvl (test code = Creatinine Lvl) 0.85 0.50-1.40 [facility]2022-11-25 12:40:00* Test Item Value Reference Range Interpretation Comme nts Sodium Lvl (test code = Sodium Lvl) 137 135-145 [facility]2022-11-25 12:40:00* Test Item Value Reference Range Interpretation Comme nts Potassium Lvl (test code = P otassium Lvl) 3.8 3.5-5.1 [facility]2022-11-25 12:40:00* Test Item Value Reference Range Interpretation Comme nts Chloride Lvl (test code = Chloride Lvl) 104 95-109 [facility]2022-11-25 12:40:00* Test Item Value Reference Range Interpretation Comme nts CO2 (test code = CO2) 23 24-32 [facility]2022-11-25 12:40:00* Test Item Value Reference Range Interpretation Comme nts Calcium Lvl (test code = Calcium Lvl) 9.1 8.5-10.5 [facility]2022-11-25 12:40:00* Test Item Value Reference Range Interpretation Comme nts AGAP (test code = AGAP) 13.8 10.0-20.0 [facility]2022-11-25 12:40:00* Test Item Value Reference Range Interpretation Comme nts eGFR (test code = eGFR) 91 [facility] TaylorCuithmuPMNMIEUIW9157-15-01 12:40:00* Test Item Value Reference Range Interpretation Comme nts Glucose Lvl (test code = Glucose Lvl) 115 70-99 [facility] TaylorZvururcRIBLSZAZF8027-02-78 12:40:00* Test Item Value Reference Range Interpretation Comme nts BUN (test code = BUN) 18 7-22 [facility] TaylorWtwbpujKQCOCRJEU2861-86-55 12:40:00* Test Item Value Reference Range Interpretation Comme nts Creatinine Lvl (test code = Creatinine Lvl) 0.85 0.50-1.40 [facility] TaylorIekrqgrZLGRONAGB0429-35-43 12:40:00* Test Item Value Reference Range Interpretation Comme nts Sodium Lvl (test code = Sodium Lvl) 137 135-145 [facility] TaylorZurastcFZGFIZJZA5432-05-88 12:40:00* Test Item Value Reference Range Interpretation Comme nts Potassium Lvl (test code = P otassium Lvl) 3.8 3.5-5.1 [facility] TaylorWquomopFJYCXUCSG4019-90-24 12:40:00* Test Item Value Reference Range Interpretation Comme nts Chloride Lvl (test code = Chloride Lvl) 104 95-109 [facility] TaylorTzsomapAVPQDKHQI7096-56-53 12:40:00* Test Item Value Reference Range Interpretation Comme nts CO2 (test code = CO2) 23 24-32 [facility] TaylorKdvavcwDPECGWAFT7915-81-57 12:40:00* Test Item Value Reference Range Interpretation Comme nts Calcium Lvl (test code = Calcium Lvl) 9.1 8.5-10.5 [facility] TaylorJtjgxdfTONBGDSSK8028-56-89 12:40:00* Test Item Value Reference Range Interpretation Comme nts AGAP (test code = AGAP) 13.8 10.0-20.0 [facility] TaylorUucehkxFPJBMQSXL9188-64-75 12:40:00* Test Item Value Reference Range Interpretation Comme nts eGFR (test code = eGFR) 91 [facility] HospitalHrsoaoeILDMYFORIL7723-09-93 12:40:00* Test Item Value Reference Range Interpretation Comme nts Segs (test code = Segs) 72.0 45.0-75.0 [facility] HospitalPocevixKGBACLEFBP5380-02-84 12:40:00* Test Item Value Reference Range Interpretation Comme nts Lymphocytes (test code = Lymphocytes) 16.7 20.0-40.0 [facility] HospitalCavgoamXMPAYJMAIO0400-78-33 12:40:00* Test Item Value Reference Range Interpretation Comme nts Monocytes (test code = Monocytes) 6.3 2.0-12.0 [place] 173692-11-25 12:40:00* Test Item Value Reference Range Interpretation Comme nts Eosinophils (test code = Eosinophils) 4.5 <=4.0 [place] 173692-11-25 12:40:00* Test Item Value Reference Range Interpretation Comme nts Basophils (test code = Basophils) 0.5 <=1.0 [place] 173692-11-25 12:40:00* Test Item Value Reference Range Interpretation Comme nts Neutrophils # (test code = N eutrophils #) 5.4 1.5-8.1 [place] 173692-11-25 12:40:00* Test Item Value Reference Range Interpretation Comme nts Lymphocytes # (test code = L ymphocytes #) 1.3 1.0-5.5 [facility] HospitalHmicrdlKQLMXPRCLD0053-37-29 12:40:00* Test Item Value Reference Range Interpretation Comme nts Monocytes # (test code = Monocytes #) 0.5 <=0.8 [place] 173692-11-25 12:40:00* Test Item Value Reference Range Interpretation Comme nts Eosinophils # (test code = E osinophils #) 0.3 <=0.5 [place] 173692-11-25 12:40:00* Test Item Value Reference Range Interpretation Comme nts WBC (test code = WBC) 7.5 3.7-10.4 [place] 173692-11-25 12:40:00* Test Item Value Reference Range Interpretation Comme nts RBC (test code = RBC) 3.56 4.70-6.10 [place] 173692-11-25 12:40:00* Test Item Value Reference Range Interpretation Comme nts Hgb (test code = Hgb) 10.2 14.0-18.0 [place] 173692-11-25 12:40:00* Test Item Value Reference Range Interpretation Comme nts Hct (test code = Hct) 30.4 42.0-54.0 [facility] HospitalOxaoqmmCEQPWJAOUK1003-32-75 12:40:00* Test Item Value Reference Range Interpretation Comme nts MCV (test code = MCV) 85.3 80.0-94.0 [facility] HospitalFlvuyzbLRMTWKRVAR4151-59-40 12:40:00* Test Item Value Reference Range Interpretation Comme nts MCH (test code = MCH) 28.6 pg 27.0-31.0 [place] 173692-11-25 12:40:00* Test Item Value Reference Range Interpretation Comme nts MCHC (test code = MCHC) 33.6 32.0-36.0 [facility] HospitalWqroehmCSHYNDCLDD3272-92-99 12:40:00* Test Item Value Reference Range Interpretation Comme nts RDW (test code = RDW) 14.6 11.5-14.5 [facility] HospitalTgqojmsEXANKRQEKZ9909-19-28 12:40:00* Test Item Value Reference Range Interpretation Comme nts Platelet (test code = Platelet) 189 133-450 [facility] HospitalZpvckusDPHTCVWATD8353-78-28 12:40:00* Test Item Value Reference Range Interpretation Comme nts MPV (test code = MPV) 9.6 7.4-10.4 [facility] HospitalCojhfdcCTOCIEYHXF6923-26-07 12:40:00* Test Item Value Reference Range Interpretation Comme nts Segs (test code = Segs) 72.0 45.0-75.0 [facility] HospitalCuapppqVDKJCXERBU8378-20-28 12:40:00* Test Item Value Reference Range Interpretation Comme nts Lymphocytes (test code = Lymphocytes) 16.7 20.0-40.0 [facility] HospitalMfoptggYMHMKZEUDQ1306-89-51 12:40:00* Test Item Value Reference Range Interpretation Comme nts Monocytes (test code = Monocytes) 6.3 2.0-12.0 [facility] HospitalPwefrjcDYEMJYONLT9420-33-97 12:40:00* Test Item Value Reference Range Interpretation Comme nts Eosinophils (test code = Eosinophils) 4.5 <=4.0 [place] 173692-11-25 12:40:00* Test Item Value Reference Range Interpretation Comme nts Basophils (test code = Basophils) 0.5 <=1.0 [place] 173692-11-25 12:40:00* Test Item Value Reference Range Interpretation Comme nts Neutrophils # (test code = N eutrophils #) 5.4 1.5-8.1 [facility] HospitalCghwqwwNMIQNSDNRZ6593-66-51 12:40:00* Test Item Value Reference Range Interpretation Comme nts Lymphocytes # (test code = L ymphocytes #) 1.3 1.0-5.5 [facility] HospitalAnwuvwrOALSTDWCTK2619-03-90 12:40:00* Test Item Value Reference Range Interpretation Comme nts Monocytes # (test code = Monocytes #) 0.5 <=0.8 [facility] HospitalAchwbagYPGYOXRGRM8368-13-75 12:40:00* Test Item Value Reference Range Interpretation Comme nts Eosinophils # (test code = E osinophils #) 0.3 <=0.5 [place] 173692-11-25 12:40:00* Test Item Value Reference Range Interpretation Comme nts WBC (test code = WBC) 7.5 3.7-10.4 [facility] HospitalBvjdiudYGHYVAPFCU3644-14-94 12:40:00* Test Item Value Reference Range Interpretation Comme nts RBC (test code = RBC) 3.56 4.70-6.10 [facility] HospitalLfhmbcoUAIQMCPKUO4656-53-77 12:40:00* Test Item Value Reference Range Interpretation Comme nts Hgb (test code = Hgb) 10.2 14.0-18.0 [facility] HospitalXalahcrVSBPAEILMQ3379-28-18 12:40:00* Test Item Value Reference Range Interpretation Comme nts Hct (test code = Hct) 30.4 42.0-54.0 [facility] HospitalHgelxctXAXTXBMUDM5221-06-16 12:40:00* Test Item Value Reference Range Interpretation Comme nts MCV (test code = MCV) 85.3 80.0-94.0 [place] 173692-11-25 12:40:00* Test Item Value Reference Range Interpretation Comme nts MCH (test code = MCH) 28.6 pg 27.0-31.0 [facility] HospitalUryerglOHSTQPCERV6581-01-18 12:40:00* Test Item Value Reference Range Interpretation Comme nts MCHC (test code = MCHC) 33.6 32.0-36.0 [facility] HospitalSsjnuxsJUIERMLHKR5864-00-86 12:40:00* Test Item Value Reference Range Interpretation Comme nts RDW (test code = RDW) 14.6 11.5-14.5 [place] 76182022-11-25 05:44:50* Test Item Value Reference Range Interpretation [facility] RADRPT (test code = RADRPT) EXAM: CT CERVICAL SPINE WITHOUT CONTRASTDATE: 06/28/2022 19:55INDICATION: - outside study. Second interpretation requested.COMPARISON: NoneTECHNIQUE: Volumetric CT of the cervical spine is acquired without contrast. Axial, coronal and sagittal images are provided. IV contrast: None.DLP: Refer to CT protocol formUT SECTION: ERFINDINGS: The spine is imaged from the skull base to the level of T1.Maintenance Groundskeeper: Noncontributory.Bones: No acute cervical spine fracture or malalignment is identified.Soft tissues: Posterior disc protrusion at C5-C6. No pre or paravertebral hematoma.IMPRESSION: 1. No acute fracture or malalignment of the cervical spine.2. Posterior disc protrusion at C5-C6. [facility]RufalmcPJCXEP1344-75-49 05:44:50* Test Item Value Reference Range Interpretation [facility] RADRPT (test code = RADRPT) EXAM: CT CERVICAL SPINE WITHOUT CONTRASTDATE: 06/28/2022 19:55INDICATION: - outside study. Second interpretation requested.COMPARISON: NoneTECHNIQUE: Volumetric CT of the cervical spine is acquired without contrast. Axial, coronal and sagittal images are provided. IV contrast: None.DLP: Refer to CT protocol formUT SECTION: ERFINDINGS: The spine is imaged from the skull base to the level of T1.Maintenance Groundskeeper: Noncontributory.Bones: No acute cervical spine fracture or malalignment is identified.Soft tissues: Posterior disc protrusion at C5-C6. No pre or paravertebral hematoma.IMPRESSION: 1. No acute fracture or malalignment of the cervical spine.2. Posterior disc protrusion at C5-C6. [facility] HospitalRbiuuqeJTHLWK8724-26-51 02:14:06* Test Item Value Reference Range Interpretation [facility] RADRPT (test code = RADRPT) EXAMINATION: CT head without contrastDATE: 06/28/2022INDICATION: Fell on concrete. Injured head.FINDINGS:Noncontrast CT images of the head are performed at an outside institution and submitted for reinterpretation following transfer. There is no intracranial hemorrhage or other brain injury.There is a moderate degree of global volume loss, chiefly manifested by increased CSF space over the convexities.The calvarium and skull base appear to be intact. There is a fluid level noted in the right maxillary sinus.IMPRESSION:Negative brain exam. [place] 76182022-11-25 02:14:06* Test Item Value Reference Range Interpretation Comme nts RADRPT (test code = RADRPT) EXAMINATION: CT head without contrastDATE: 06/28/2022INDICATION: Fell on concrete. Injured head.FINDINGS:Noncontrast CT images of the head are performed at an outside institution and submitted for reinterpretation following transfer. There is no intracranial hemorrhage or other brain injury.There is a moderate degree of global volume loss, chiefly manifested by increased CSF space over the convexities.The calvarium and skull base appear to be intact. There is a fluid level noted in the right maxillary sinus.IMPRESSION:Negative brain exam. [facility] TaylorOxppyjjEMWTZXXWR5930-08-77 01:56:00* Test Item Value Reference Range Interpretation Comme nts U Amph Scr (test code = U Amph Scr) Negative *NA*(06/28/22 7:56 PM) [facility] TaylorMquzxouMLDZPZSAH0777-37-48 01:56:00* Test Item Value Reference Range Interpretation Comme nts U Jannette Scr (test code = U Jannette Scr) Negative *NA*(06/28/22 7:56 PM) [facility] TaylorSctyhvaIKDLQPGIU7518-31-77 01:56:00* Test Item Value Reference Range Interpretation Comme nts U Benzodiaz Scr (test code = U Benzodiaz Scr) Negative *NA*(06/28/22 7:56 PM) [facility] TaylorGavalrnPWWAASZZP3329-49-92 01:56:00* Test Item Value Reference Range Interpretation Comme nts U Cocaine Scr (test code = U Cocaine Scr) Negative *NA*(06/28/22 7:56 PM) [facility] TaylorBstmqqhUAQPNDDQU9013-32-12 01:56:00* Test Item Value Reference Range Interpretation Comme nts U Cannab Scr (test code = U Cannab Scr) Negative *NA*(06/28/22 7:56 PM) [facility] TaylorRwwjkddROZVUPOPT5097-20-33 01:56:00* Test Item Value Reference Range Interpretation Comme nts U Opiate Scr (test code = U Opiate Scr) Positive *ABN*(06/28/22 7:56 PM) [facility]KleppanEUJMJLCIF7125-25-32 01:56:00* Test Item Value Reference Range Interpretation Comme nts U Phencyclidine Scr (test code = U Phencyclidine Scr) Negative *NA*(06/28/22 7:56 PM) [facility] HeightsYaywjkpHBYNUFQZZ3975-06-64 01:56:00* Test Item Value Reference Range Interpretation Comme nts UDS Note (test code = UDS Note) See Note (06/28/22 7:56 PM) [facility] [id number] 01:56:00* Test Item Value Reference Range Interpretation Comme nts U Amph Scr (test code = U Amph Scr) Negative *NA*(06/28/22 7:56 PM) [facility] [id number] 01:56:00* Test Item Value Reference Range Interpretation Comme nts U Jannette Scr (test code = U Jannette Scr) Negative *NA*(06/28/22 7:56 PM) [facility] [id number] 01:56:00* Test Item Value Reference Range Interpretation Comme nts U Benzodiaz Scr (test code = U Benzodiaz Scr) Negative *NA*(06/28/22 7:56 PM) [facility] [id number] 01:56:00* Test Item Value Reference Range Interpretation Comme nts U Cocaine Scr (test code = U Cocaine Scr) Negative *NA*(06/28/22 7:56 PM) [facility] WBDATR0599-28-03 01:56:00* Test Item Value Reference Range Interpretation Comme nts U Cannab Scr (test code = U Cannab Scr) Negative *NA*(06/28/22 7:56 PM) [facility] [id number] 01:56:00* Test Item Value Reference Range Interpretation Comme nts U Opiate Scr (test code = U Opiate Scr) Positive *ABN*(06/28/22 7:56 PM) [facility] [id number] 01:56:00* Test Item Value Reference Range Interpretation Comme nts U Phencyclidine Scr (test code = U Phencyclidine Scr) Negative *NA*(06/28/22 7:56 PM) [facility] [id number] 01:56:00* Test Item Value Reference Range Interpretation Comme nts UDS Note (test code = UDS Note) See Note (06/28/22 7:56 PM) [facility] [id number] 01:56:00* Test Item Value Reference Range Interpretation Comme nts UA Sq Epi (test code = UA Sq Epi) Occasional /LPF [facility] [id number] 01:56:00* Test Item Value Reference Range Interpretation Comme nts UA WBC (test code = UA WBC) no gt <=5 [facility] [id number] 01:56:00* Test Item Value Reference Range Interpretation Comme nts UA RBC (test code = UA RBC) no gt <=2 [facility] [id number] 01:56:00* Test Item Value Reference Range Interpretation Comme nts UA Bacteria (test code = UA Bacteria) Occasional /HPF [facility] [id number] 01:56:00* Test Item Value Reference Range Interpretation Comme nts UA Mucus (test code = UA Mucus) Few /LPF [facility] [id number] 01:56:00* Test Item Value Reference Range Interpretation Comme nts UA Color (test code = UA Color) Yellow (06/28/22 7:56 PM) [facility] [id number] 01:56:00* Test Item Value Reference Range Interpretation Comme nts UA Turbidity (test code = UA Turbidity) Clear (06/28/22 7:56 PM) [facility] [id number] 01:56:00* Test Item Value Reference Range Interpretation Comme nts UA Spec Grav (test code = UA Spec Grav) 1.010 1 [facility] [id number] 01:56:00* Test Item Value Reference Range Interpretation Comme nts UA pH (test code = UA pH) 6.0 1 5.0-8.0 [facility] [id number] 01:56:00* Test Item Value Reference Range Interpretation Comme nts UA Protein (test code = UA Protein) Negative (06/28/22 7:56 PM) [facility] [id number] 01:56:00* Test Item Value Reference Range Interpretation Comme nts UA Glucose (test code = UA Glucose) Negative (06/28/22 7:56 PM) [facility] [id number] 01:56:00* Test Item Value Reference Range Interpretation Comme nts UA Ketones (test code = UA Ketones) Negative (06/28/22 7:56 PM) [facility] [id number] 01:56:00* Test Item Value Reference Range Interpretation Comme nts UA Bili (test code = UA Bili) Negative (06/28/22 7:56 PM) [facility] [id number] 01:56:00* Test Item Value Reference Range Interpretation Comme nts UA Blood (test code = UA Blood) Negative (06/28/22 7:56 PM) [facility] [id number] 01:56:00* Test Item Value Reference Range Interpretation Comme nts UA Urobilinogen (test code = UA Urobilinogen) 0.2 0.1-1.0 [facility] [id number] 01:56:00* Test Item Value Reference Range Interpretation Comme nts UA Nitrite (test code = UA Nitrite) Negative (06/28/22 7:56 PM) [facility] [id number] 01:56:00* Test Item Value Reference Range Interpretation Comme nts UA Leuk Est (test code = UA Leuk Est) Negative (06/28/22 7:56 PM) [facility] [id number] 01:56:00* Test Item Value Reference Range Interpretation Comme nts UA Sq Epi (test code = UA Sq Epi) Occasional /LPF [facility] [id number] 01:56:00* Test Item Value Reference Range Interpretation Comme nts UA WBC (test code = UA WBC) no gt <=5 [facility] [id number] 01:56:00* Test Item Value Reference Range Interpretation Comme nts UA RBC (test code = UA RBC) no gt <=2 [facility] [id number] 01:56:00* Test Item Value Reference Range Interpretation Comme nts UA Bacteria (test code = UA Bacteria) Occasional /HPF [facility] [id number] 01:56:00* Test Item Value Reference Range Interpretation Comme nts UA Mucus (test code = UA Mucus) Few /LPF [facility] [id number] 01:56:00* Test Item Value Reference Range Interpretation Comme nts UA Color (test code = UA Color) Yellow (06/28/22 7:56 PM) [facility] AND [id number] 01:56:00* Test Item Value Reference Range Interpretation Comme nts UA Turbidity (test code = UA Turbidity) Clear (06/28/22 7:56 PM) [facility] [id number] 01:56:00* Test Item Value Reference Range Interpretation Comme nts UA Spec Grav (test code = UA Spec Grav) 1.010 1 [facility] AND [id number] 01:56:00* Test Item Value Reference Range Interpretation Comme nts UA pH (test code = UA pH) 6.0 1 5.0-8.0 [facility] AND [id number] 01:56:00* Test Item Value Reference Range Interpretation Comme nts UA Protein (test code = UA Protein) Negative (06/28/22 7:56 PM) [facility] AND [id number] 01:56:00* Test Item Value Reference Range Interpretation Comme nts UA Glucose (test code = UA Glucose) Negative (06/28/22 7:56 PM) [facility] AND [id number] 01:56:00* Test Item Value Reference Range Interpretation Comme nts UA Ketones (test code = UA Ketones) Negative (06/28/22 7:56 PM) [facility] AND [id number] 01:56:00* Test Item Value Reference Range Interpretation Comme nts UA Bili (test code = UA Bili) Negative (06/28/22 7:56 PM) [facility] AND [id number] 01:56:00* Test Item Value Reference Range Interpretation Comme nts UA Blood (test code = UA Blood) Negative (06/28/22 7:56 PM) [facility] AND [id number] 01:56:00* Test Item Value Reference Range Interpretation Comme nts UA Urobilinogen (test code = UA Urobilinogen) 0.2 0.1-1.0 [facility] AND [id number] 01:56:00* Test Item Value Reference Range Interpretation Comme nts UA Nitrite (test code = UA Nitrite) Negative (06/28/22 7:56 PM) [facility] AND [id number] 01:56:00* Test Item Value Reference Range Interpretation Comme nts UA Leuk Est (test code = UA Leuk Est) Negative (06/28/22 7:56 PM) [facility] TaylorAvbcuogACJMDGCLS7382-79-66 01:56:00* Test Item Value Reference Range Interpretation Comme nts U Amph Scr (test code = U Amph Scr) Negative *NA*(06/28/22 7:56 PM) [facility] TaylorGphhnfiNENTRCDWJ0164-40-32 01:56:00* Test Item Value Reference Range Interpretation Comme nts U Jannette Scr (test code = U Jannette Scr) Negative *NA*(06/28/22 7:56 PM) [facility] TaylorZnzwyqbUBUVMNQDC3068-78-37 01:56:00* Test Item Value Reference Range Interpretation Comme nts U Benzodiaz Scr (test code = U Benzodiaz Scr) Negative *NA*(06/28/22 7:56 PM) [facility] TaylorJjyltxzDDTRIBXIU0120-22-81 01:56:00* Test Item Value Reference Range Interpretation Comme nts U Cocaine Scr (test code = U Cocaine Scr) Negative *NA*(06/28/22 7:56 PM) [facility] TaylorJenbnfkGWECHARXY5386-09-43 01:56:00* Test Item Value Reference Range Interpretation Comme nts U Cannab Scr (test code = U Cannab Scr) Negative *NA*(06/28/22 7:56 PM) [facility] TaylorRxggcrgHRADFINTX2392-53-64 01:56:00* Test Item Value Reference Range Interpretation Comme nts U Opiate Scr (test code = U Opiate Scr) Positive *ABN*(06/28/22 7:56 PM) [facility] TaylorNjsjcfdFXRMHJHMC2472-75-06 01:56:00* Test Item Value Reference Range Interpretation Comme nts U Phencyclidine Scr (test code = U Phencyclidine Scr) Negative *NA*(06/28/22 7:56 PM) [facility] TaylorNfckeyoHTGCKOMLI2418-75-99 01:56:00* Test Item Value Reference Range Interpretation Comme nts UDS Note (test code = UDS Note) See Note (06/28/22 7:56 PM) [facility] [id number] 01:56:00* Test Item Value Reference Range Interpretation Comme nts U Amph Scr (test code = U Amph Scr) Negative *NA*(06/28/22 7:56 PM) [facility] [id number] 01:56:00* Test Item Value Reference Range Interpretation Comme nts U Jannette Scr (test code = U Jannette Scr) Negative *NA*(06/28/22 7:56 PM) [facility] [id number] 01:56:00* Test Item Value Reference Range Interpretation Comme nts U Benzodiaz Scr (test code = U Benzodiaz Scr) Negative *NA*(06/28/22 7:56 PM) [facility]DR[facility] [id number] 01:56:00* Test Item Value Reference Range Interpretation Comme nts U Cocaine Scr (test code = U Cocaine Scr) Negative *NA*(06/28/22 7:56 PM) [facility]DR[facility] [id number] 01:56:00* Test Item Value Reference Range Interpretation Comme nts U Cannab Scr (test code = U Cannab Scr) Negative *NA*(06/28/22 7:56 PM) [facility]DR[facility] [id number] 01:56:00* Test Item Value Reference Range Interpretation Comme nts U Opiate Scr (test code = U Opiate Scr) Positive *ABN*(06/28/22 7:56 PM) [facility]DR[facility] [id number] 01:56:00* Test Item Value Reference Range Interpretation Comme nts U Phencyclidine Scr (test code = U Phencyclidine Scr) Negative *NA*(06/28/22 7:56 PM) [facility]annDR[facility] [id number] 01:56:00* Test Item Value Reference Range Interpretation Comme nts UDS Note (test code = UDS Note) See Note (06/28/22 7:56 PM) [facility] [id number] 01:56:00* Test Item Value Reference Range Interpretation Comme nts UA Sq Epi (test code = UA Sq Epi) Occasional /LPF [facility] [id number] 01:56:00* Test Item Value Reference Range Interpretation Comme nts UA WBC (test code = UA WBC) no gt <=5 [facility] [id number] 01:56:00* Test Item Value Reference Range Interpretation Comme nts UA RBC (test code = UA RBC) no gt <=2 [facility] AND [id number] 01:56:00* Test Item Value Reference Range Interpretation Comme nts UA Bacteria (test code = UA Bacteria) Occasional /HPF [facility] AND [id number] 01:56:00* Test Item Value Reference Range Interpretation Comme nts UA Mucus (test code = UA Mucus) Few /LPF [facility] AND [id number] 01:56:00* Test Item Value Reference Range Interpretation Comme nts UA Color (test code = UA Color) Yellow (06/28/22 7:56 PM) [facility] AND [id number] 01:56:00* Test Item Value Reference Range Interpretation Comme nts UA Turbidity (test code = UA Turbidity) Clear (06/28/22 7:56 PM) [facility] AND [id number] 01:56:00* Test Item Value Reference Range Interpretation Comme nts UA Spec Grav (test code = UA Spec Grav) 1.010 1 [facility] AND [id number] 01:56:00* Test Item Value Reference Range Interpretation Comme nts UA pH (test code = UA pH) 6.0 1 5.0-8.0 [facility] AND [id number] 01:56:00* Test Item Value Reference Range Interpretation Comme nts UA Protein (test code = UA Protein) Negative (06/28/22 7:56 PM) [facility] AND [id number] 01:56:00* Test Item Value Reference Range Interpretation Comme nts UA Glucose (test code = UA Glucose) Negative (06/28/22 7:56 PM) [facility] AND [id number] 01:56:00* Test Item Value Reference Range Interpretation Comme nts UA Ketones (test code = UA Ketones) Negative (06/28/22 7:56 PM) [facility] [id number] 01:56:00* Test Item Value Reference Range Interpretation Comme nts UA Bili (test code = UA Bili) Negative (06/28/22 7:56 PM) [facility] [id number] 01:56:00* Test Item Value Reference Range Interpretation Comme nts UA Blood (test code = UA Blood) Negative (06/28/22 7:56 PM) [facility] [id number] 01:56:00* Test Item Value Reference Range Interpretation Comme nts UA Urobilinogen (test code = UA Urobilinogen) 0.2 0.1-1.0 [facility] [id number] 01:56:00* Test Item Value Reference Range Interpretation Comme nts UA Nitrite (test code = UA Nitrite) Negative (06/28/22 7:56 PM) [facility] [id number] 01:56:00* Test Item Value Reference Range Interpretation Comme nts UA Leuk Est (test code = UA Leuk Est) Negative (06/28/22 7:56 PM) [facility] [id number] 01:56:00* Test Item Value Reference Range Interpretation Comme nts UA Sq Epi (test code = UA Sq Epi) Occasional /LPF [facility] [id number] 01:56:00* Test Item Value Reference Range Interpretation Comme nts UA WBC (test code = UA WBC) no gt <=5 [facility] [id number] 01:56:00* Test Item Value Reference Range Interpretation Comme nts UA RBC (test code = UA RBC) no gt <=2 [facility] [id number] 01:56:00* Test Item Value Reference Range Interpretation Comme nts UA Bacteria (test code = UA Bacteria) Occasional /HPF [facility] [id number] 01:56:00* Test Item Value Reference Range Interpretation Comme nts UA Mucus (test code = UA Mucus) Few /LPF [facility] [id number] 01:56:00* Test Item Value Reference Range Interpretation Comme nts UA Color (test code = UA Color) Yellow (06/28/22 7:56 PM) [facility] [id number] 01:56:00* Test Item Value Reference Range Interpretation Comme nts UA Turbidity (test code = UA Turbidity) Clear (06/28/22 7:56 PM) [facility] [id number] 01:56:00* Test Item Value Reference Range Interpretation Comme nts UA Spec Grav (test code = UA Spec Grav) 1.010 1 [facility] [id number] 01:56:00* Test Item Value Reference Range Interpretation Comme nts UA pH (test code = UA pH) 6.0 1 5.0-8.0 [facility] [id number] 01:56:00* Test Item Value Reference Range Interpretation Comme nts UA Protein (test code = UA Protein) Negative (06/28/22 7:56 PM) [facility] [id number] 01:56:00* Test Item Value Reference Range Interpretation Comme nts UA Glucose (test code = UA Glucose) Negative (06/28/22 7:56 PM) [facility] AND [id number] 01:56:00* Test Item Value Reference Range Interpretation Comme nts UA Ketones (test code = UA Ketones) Negative (06/28/22 7:56 PM) [facility] [id number] 01:56:00* Test Item Value Reference Range Interpretation Comme nts UA Bili (test code = UA Bili) Negative (06/28/22 7:56 PM) [facility] AND [id number] 01:56:00* Test Item Value Reference Range Interpretation Comme nts UA Blood (test code = UA Blood) Negative (06/28/22 7:56 PM) [facility] [id number] 01:56:00* Test Item Value Reference Range Interpretation Comme nts UA Urobilinogen (test code = UA Urobilinogen) 0.2 0.1-1.0 [facility] [id number] 01:56:00* Test Item Value Reference Range Interpretation Comme nts UA Nitrite (test code = UA Nitrite) Negative (06/28/22 7:56 PM) [facility] [id number] 01:56:00* Test Item Value Reference Range Interpretation Comme nts UA Leuk Est (test code = UA Leuk Est) Negative (06/28/22 7:56 PM) [facility] [id number] 01:54:00* Test Item Value Reference Range Interpretation Comme nts ABO/Rh (test code = ABO/Rh) O NEG [facility] [id number] 01:54:00* Test Item Value Reference Range Interpretation Comme nts Antibody Scrn (test code = Antibody Scrn) Negative (06/28/22 7:54 PM) [facility] [id number] 01:54:00* Test Item Value Reference Range Interpretation Comme nts ABO/Rh (test code = ABO/Rh) O NEG [facility] [id number] 01:54:00* Test Item Value Reference Range Interpretation Comme nts Antibody Scrn (test code = Antibody Scrn) Negative (06/28/22 7:54 PM) [facility]JkkzvwuXSWISSYNYD4269-87-12 01:54:00* Test Item Value Reference Range Interpretation Comme nts Coronavirus (COVID-19) MELLISA (test code = Coronavirus (COVID-19) MELLISA) Not Detected (06/28/22 7:54 PM) [facility]lineYtyfqmiVVMHTJYKKI5132-74-70 01:54:00* Test Item Value Reference Range Interpretation Comme nts Coronavirus (COVID-19) MELLISA (test code = Coronavirus (COVID-19) MELLISA) Not Detected (06/28/22 7:54 PM) [facility] [id number] 01:54:00* Test Item Value Reference Range Interpretation Comme nts ABO/Rh (test code = ABO/Rh) O NEG [facility] [id number] 01:54:00* Test Item Value Reference Range Interpretation Comme nts Antibody Scrn (test code = Antibody Scrn) Negative (06/28/22 7:54 PM) [facility] [id number] 01:54:00* Test Item Value Reference Range Interpretation Comme nts ABO/Rh (test code = ABO/Rh) O NEG [facility] [id number] 01:54:00* Test Item Value Reference Range Interpretation Comme nts Antibody Scrn (test code = Antibody Scrn) Negative (06/28/22 7:54 PM) [facility]lineFoazbwaZRIKPEFSMK2795-91-62 01:54:00* Test Item Value Reference Range Interpretation Comme nts Coronavirus (COVID-19) MELLISA (test code = Coronavirus (COVID-19) MELLISA) Not Detected (06/28/22 7:54 PM) [facility]lineKvoakmzJUDPOTIKWZ6278-47-60 01:54:00* Test Item Value Reference Range Interpretation Comme nts Coronavirus (COVID-19) MELLISA (test code = Coronavirus (COVID-19) MELLISA) Not Detected (06/28/22 7:54 PM) [facility] [id number] 01:29:00* Test Item Value Reference Range Interpretation Comme nts Total CK (test code = Total CK) 333 12-191 [facility]2022-11-25 01:29:00* Test Item Value Reference Range Interpretation Comme nts Glucose Lvl (test code = Glucose Lvl) 105 70-99 [facility]2022-11-25 01:29:00* Test Item Value Reference Range Interpretation Comme nts BUN (test code = BUN) 19 02-23 [facility]2022-11-25 01:29:00* Test Item Value Reference Range Interpretation Comme nts Creatinine Lvl (test code = Creatinine Lvl) 0.74 0.50-1.40 [facility]2022-11-25 01:29:00* Test Item Value Reference Range Interpretation Comme nts Sodium Lvl (test code = Sodium Lvl) 139 135-145 [facility]2022-11-25 01:29:00* Test Item Value Reference Range Interpretation Comme nts Potassium Lvl (test code = P otassium Lvl) 3.9 3.5-5.1 [facility]2022-11-25 01:29:00* Test Item Value Reference Range Interpretation Comme nts Chloride Lvl (test code = Chloride Lvl) 107 95-109 [facility]2022-11-25 01:29:00* Test Item Value Reference Range Interpretation Comme nts CO2 (test code = CO2) 23 24-32 [facility]2022-11-25 01:29:00* Test Item Value Reference Range Interpretation Comme nts Calcium Lvl (test code = Calcium Lvl) 9.2 8.5-10.5 [place] 971572-11-25 01:29:00* Test Item Value Reference Range Interpretation Comme nts AGAP (test code = AGAP) 12.9 10.0-20.0 [place] 971572-11-25 01:29:00* Test Item Value Reference Range Interpretation Comme nts eGFR (test code = eGFR) 95 [place] 971572-11-25 01:29:00* Test Item Value Reference Range Interpretation Comme nts Lactic Acid Lvl (test code = Lactic Acid Lvl) 0.9 0.5-2.2 [place] 971572-11-25 01:29:00* Test Item Value Reference Range Interpretation Comme nts Total Protein (test code = T otal Protein) 7.6 6.4-8.4 [place] 971572-11-25 01:29:00* Test Item Value Reference Range Interpretation Comme nts Albumin Lvl (test code = Albumin Lvl) 3.1 3.5-5.0 [place] 971572-11-25 01:29:00* Test Item Value Reference Range Interpretation Comme nts ALANINE AMINOTRANSFERASE (te st code = ALANINE AMINOTRANSFERASE) 31 <=65 [place] 971572-11-25 01:29:00* Test Item Value Reference Range Interpretation Comme nts AST (test code = AST) 30 <=37 [place] 971572-11-25 01:29:00* Test Item Value Reference Range Interpretation Comme nts Alk Phos (test code = Alk Phos) 79 39-136 [place] 971572-11-25 01:29:00* Test Item Value Reference Range Interpretation Comme nts Bili Total (test code = Bili Total) 0.4 0.2-1.3 [place] 971572-11-25 01:29:00* Test Item Value Reference Range Interpretation Comme nts Bili Direct (test code = Bili Direct) 0.1 <=0.3 [place] [address]-11-25 01:29:00* Test Item Value Reference Range Interpretation Comme nts Bili Indirect (test code = B ping Indirect) 0.3 <=1.0 [place] 971572-11-25 01:29:00* Test Item Value Reference Range Interpretation Comme nts Globulin (test code = Globulin) 4.5 2.7-4.2 [facility]2022-11-25 01:29:00* Test Item Value Reference Range Interpretation Comme nts A/G Ratio (test code = A/G Ratio) 0.7 1 0.7-1.6 [facility] TaylorYnvmxykBFTXAFWRH3195-90-44 01:29:00* Test Item Value Reference Range Interpretation Comme nts Ethanol Lvl (test code = Ethanol Lvl) no gt [facility] TaylorSuwjeikODJHLFEFJ1081-61-61 01:29:00* Test Item Value Reference Range Interpretation Comme nts Etoh (%) (test code = Etoh (%)) no gt [facility] TaylorCymcbgnEZVQCYAYB1893-76-92 01:29:00* Test Item Value Reference Range Interpretation Comme nts Lactic Acid Lvl (test code = Lactic Acid Lvl) 0.9 0.5-2.2 [facility] TaylorMlgsceyZMABZBYEV1423-78-35 01:29:00* Test Item Value Reference Range Interpretation Comme nts Total Protein (test code = T otal Protein) 7.6 6.4-8.4 [facility] TaylorFragzwjSOEPFSXVF3449-34-88 01:29:00* Test Item Value Reference Range Interpretation Comme nts Albumin Lvl (test code = Albumin Lvl) 3.1 3.5-5.0 [facility] TaylorKqqsyhjAWTTCDITC7120-16-57 01:29:00* Test Item Value Reference Range Interpretation Comme nts ALANINE AMINOTRANSFERASE (te st code = ALANINE AMINOTRANSFERASE) 31 <=65 [facility] TaylorCkdrkodGHPDQQDYE0642-34-24 01:29:00* Test Item Value Reference Range Interpretation Comme nts AST (test code = AST) 30 <=37 [place] 118912-11-25 01:29:00* Test Item Value Reference Range Interpretation Comme nts Alk Phos (test code = Alk Phos) 79 39-136 [facility] TaylorOrfnazeUDXLCPJBQ7308-04-68 01:29:00* Test Item Value Reference Range Interpretation Comme nts Bili Total (test code = Bili Total) 0.4 0.2-1.3 [facility] TaylorTvkxkozRDWXXINCO9706-57-93 01:29:00* Test Item Value Reference Range Interpretation Comme nts Bili Direct (test code = Bili Direct) 0.1 <=0.3 [facility] TaylorNmauukpZFGWNERCB3824-14-07 01:29:00* Test Item Value Reference Range Interpretation Comme nts Bili Indirect (test code = B ping Indirect) 0.3 <=1.0 [facility] TaylorWblngolNNJWZNEXR8674-04-60 01:29:00* Test Item Value Reference Range Interpretation Comme nts Globulin (test code = Globulin) 4.5 2.7-4.2 [facility] TaylorRncgytrFCCHFELEB4937-39-78 01:29:00* Test Item Value Reference Range Interpretation Comme nts A/G Ratio (test code = A/G Ratio) 0.7 1 0.7-1.6 [facility] TaylorQxrqqvhYYEDYUOOP9203-89-47 01:29:00* Test Item Value Reference Range Interpretation Comme nts Total CK (test code = Total CK) 333 12-191 [facility] TaylorKgvfnwiVWJZASRNB0202-75-17 01:29:00* Test Item Value Reference Range Interpretation Comme nts pH Jose (test code = pH Ojse) 7.34 1 7.28-7.42 [facility] TaylorYfthrpnAMMNEXFYX1696-60-35 01:29:00* Test Item Value Reference Range Interpretation Comme nts pCO2 Jose (test code = pCO2 Jose) 49 38-52 [facility] TaylorBnogrspBFAPLWASP1055-64-46 01:29:00* Test Item Value Reference Range Interpretation Comme nts pO2 Jose (test code = pO2 Jose) 26 20-49 [facility] TaylorHyicavrYMOEJAVFE9581-80-00 01:29:00* Test Item Value Reference Range Interpretation Comme nts HCO3 Jose (test code = HCO3 Jose) 26 22-26 [facility] TaylorElbcobnTFMEXNUTA1307-37-51 01:29:00* Test Item Value Reference Range Interpretation Comme nts BE Jose (test code = BE Jose) 0 -2-2 [facility] TaylorNjxsqwfYTSRUXFKY9356-14-66 01:29:00* Test Item Value Reference Range Interpretation Comme nts O2 Sat Jose (calc) (test code = O2 Sat Jose (calc)) 43.2 40.0-70.0 [facility] TaylorIouebkcJKJLKLOJL2373-10-71 01:29:00* Test Item Value Reference Range Interpretation Comme nts Temp Jose (test code = Temp Jose) 37.0 [facility] HospitalEkbimfuQNPQVGLAXN1015-72-34 01:29:00* Test Item Value Reference Range Interpretation Comme nts PT (test code = PT) 13.2 s 12.0-14.7 [place] [address]-11-25 01:29:00* Test Item Value Reference Range Interpretation Comme nts INR (test code = INR) 1.01 1 0.85-1.17 [place] [address]-11-25 01:29:00* Test Item Value Reference Range Interpretation Comme nts PTT (test code = PTT) 31.2 s 22.9-35.8 [place] 173692-11-25 01:29:00* Test Item Value Reference Range Interpretation Comme nts ACT (TEG) Rapid (test code = ACT (TEG) Rapid) 113 s 86-118 [place] [address]-11-25 01:29:00* Test Item Value Reference Range Interpretation Comme nts Split Point Rapid (test code = Split Point Rapid) 0.6 min [place] [address]-11-25 01:29:00* Test Item Value Reference Range Interpretation Comme nts R-time Rapid (test code = R- time Rapid) 0.7 min 0.4-0.7 [place] [address]-11-25 01:29:00* Test Item Value Reference Range Interpretation Comme nts K-time Rapid (test code = K- time Rapid) 0.8 min 0.6-2.3 [place] [address]-11-25 01:29:00* Test Item Value Reference Range Interpretation Comme nts Angle Rapid (test code = Ang le Rapid) 79 degrees 64-80 [facility] HospitalJucbvwiYSGRUVBMPS9921-94-92 01:29:00* Test Item Value Reference Range Interpretation Comme nts Max Amplitude Rapid (test co de = Max Amplitude Rapid) 72 mm 52-71 [facility] HospitalNdmaowvXATEHZCIPT6567-27-01 01:29:00* Test Item Value Reference Range Interpretation Comme nts G-value Rapid (test code = G -value Rapid) 12.8 5.0-11.6 [place] 173692-11-25 01:29:00* Test Item Value Reference Range Interpretation Comme nts Estimated % Lysis Rapid (bill t code = Estimated % Lysis Rapid) 0.0 <=7.5 [place] 173692-11-25 01:29:00* Test Item Value Reference Range Interpretation Comme nts WBC X 10x3 (test code = WBC X 10x3) 8.1 3.7-10.4 [facility] HospitalNcmtlkhKHXPUNMCJQ3889-98-40 01:29:00* Test Item Value Reference Range Interpretation Comme nts RBC X 10x6 (test code = RBC X 10x6) 3.73 4.70-6.10 [facility] HospitalTgjlvsqCLSNZCPSZI0496-31-07 01:29:00* Test Item Value Reference Range Interpretation Comme nts Hgb (test code = Hgb) 10.8 14.0-18.0 [facility] HospitalPdxerajXXOLRLCVPV6124-24-98 01:29:00* Test Item Value Reference Range Interpretation Comme nts Hct (test code = Hct) 32.7 42.0-54.0 [facility] HospitalMywiwwyVEPBBQWNVA4388-72-63 01:29:00* Test Item Value Reference Range Interpretation Comme nts MCV (test code = MCV) 87.6 80.0-94.0 [facility] HospitalKrqpgmxAAKKTOXTBH4852-15-83 01:29:00* Test Item Value Reference Range Interpretation Comme nts MCH (test code = MCH) 28.8 pg 27.0-31.0 [facility] HospitalTmiajzhIBUAWQCARD7782-11-97 01:29:00* Test Item Value Reference Range Interpretation Comme nts MCHC (test code = MCHC) 32.9 32.0-36.0 [facility] HospitalZgkrxgcQDBFAHUCCV3800-82-76 01:29:00* Test Item Value Reference Range Interpretation Comme nts RDW (test code = RDW) 14.4 11.5-14.5 [facility] HospitalUrdbgaxTMTANNFZPE2177-53-39 01:29:00* Test Item Value Reference Range Interpretation Comme nts Platelet (test code = Platelet) 194 133-450 [facility] HospitalBplnjqbUJOTTLDXYY6353-17-13 01:29:00* Test Item Value Reference Range Interpretation Comme nts MPV (test code = MPV) 9.2 7.4-10.4 [facility] HospitalEscxtfnIFVYQCXKXF9649-18-08 01:29:00* Test Item Value Reference Range Interpretation Comme nts PT (test code = PT) 13.2 s 12.0-14.7 [facility] HospitalTtezgeeMIRNMZIIHD6205-92-34 01:29:00* Test Item Value Reference Range Interpretation Comme nts INR (test code = INR) 1.01 1 0.85-1.17 [place] [address]-11-25 01:29:00* Test Item Value Reference Range Interpretation Comme nts PTT (test code = PTT) 31.2 s 22.9-35.8 [place] 173692-11-25 01:29:00* Test Item Value Reference Range Interpretation Comme nts ACT (TEG) Rapid (test code = ACT (TEG) Rapid) 113 s 86-118 [place] 173692-11-25 01:29:00* Test Item Value Reference Range Interpretation Comme nts Split Point Rapid (test code = Split Point Rapid) 0.6 min [place] 173692-11-25 01:29:00* Test Item Value Reference Range Interpretation Comme nts R-time Rapid (test code = R- time Rapid) 0.7 min 0.4-0.7 [place] [address]-11-25 01:29:00* Test Item Value Reference Range Interpretation Comme nts K-time Rapid (test code = K- time Rapid) 0.8 min 0.6-2.3 [place] [address]-11-25 01:29:00* Test Item Value Reference Range Interpretation Comme nts Angle Rapid (test code = Ang le Rapid) 79 degrees 64-80 [place] 173692-11-25 01:29:00* Test Item Value Reference Range Interpretation Comme nts Max Amplitude Rapid (test co de = Max Amplitude Rapid) 72 mm 52-71 [place] 173692-11-25 01:29:00* Test Item Value Reference Range Interpretation Comme nts G-value Rapid (test code = G -value Rapid) 12.8 5.0-11.6 [place] [address]-11-25 01:29:00* Test Item Value Reference Range Interpretation Comme nts Estimated % Lysis Rapid (bill t code = Estimated % Lysis Rapid) 0.0 <=7.5 [place] [address]-11-25 01:29:00* Test Item Value Reference Range Interpretation Comme nts Segs (test code = Segs) 70.1 45.0-75.0 [place] [address]-11-25 01:29:00* Test Item Value Reference Range Interpretation Comme nts Lymphocytes (test code = Lymphocytes) 18.2 20.0-40.0 [facility] HeightsGoevmrwLPBBPQYLZJ6598-88-46 01:29:00* Test Item Value Reference Range Interpretation Comme nts Monocytes (test code = Monocytes) 7.2 2.0-12.0 [facility]ijpgzlSWTYBTZQHG1760-73-33 01:29:[facility]* Test Item Value Reference Range Interpretation Comme nts Eosinophils (test code = Eosinophils) 4.0 <=4.0 [facility] HospitalFkhavpnVGGRNLZEUU8946-51-82 01:29:00* Test Item Value Reference Range Interpretation Comme nts Basophils (test code = Basophils) 0.5 <=1.0 [facility] HospitalYubchwnIDIBLPLGMO9532-16-47 01:29:00* Test Item Value Reference Range Interpretation Comme nts Neutrophils # (test code = N eutrophils #) 5.7 1.5-8.1 [facility] HospitalFhfbuudQEBBKRSZNP3643-60-16 01:29:00* Test Item Value Reference Range Interpretation Comme nts Lymphocytes # (test code = L ymphocytes #) 1.5 1.0-5.5 [facility] HospitalUzzkbeqPAMLPLWHZA9468-87-03 01:29:00* Test Item Value Reference Range Interpretation Comme nts Monocytes # (test code = Monocytes #) 0.6 <=0.8 [facility] HospitalWrlpmkuBDVGFECQYE0594-28-09 01:29:00* Test Item Value Reference Range Interpretation Comme nts Eosinophils # (test code = E osinophils #) 0.3 <=0.5 [facility] HeightsBjgmewyDHHIWHCNRM6027-18-58 01:29:00* Test Item Value Reference Range Interpretation Comme nts Ethanol Lvl (test code = Ethanol Lvl) no gt [facility]QptsfmfHZQIUDJHKA3771-91-34 01:29:00* Test Item Value Reference Range Interpretation Comme nts Etoh (%) (test code = Etoh (%)) no gt [facility]lakeannCARDIAC LJZCUIF8148-85-30 01:29:00* Test Item Value Reference Range Interpretation Comme nts Total CK (test code = Total CK) 333 12-191 [facility]2022-11-25 01:29:00* Test Item Value Reference Range Interpretation Comme nts Glucose Lvl (test code = Glucose Lvl) 105 70-99 [facility]2022-11-25 01:29:00* Test Item Value Reference Range Interpretation Comme nts BUN (test code = BUN) 19 7-22 [facility]2022-11-25 01:29:00* Test Item Value Reference Range Interpretation Comme nts Creatinine Lvl (test code = Creatinine Lvl) 0.74 0.50-1.40 [facility]2022-11-25 01:29:00* Test Item Value Reference Range Interpretation Comme nts Sodium Lvl (test code = Sodium Lvl) 139 135-145 [facility]2022-11-25 01:29:00* Test Item Value Reference Range Interpretation Comme nts Potassium Lvl (test code = P otassium Lvl) 3.9 3.5-5.1 [place] 971572-11-25 01:29:00* Test Item Value Reference Range Interpretation Comme nts Chloride Lvl (test code = Chloride Lvl) 107 95-109 [facility]2022-11-25 01:29:00* Test Item Value Reference Range Interpretation Comme nts CO2 (test code = CO2) 23 24-32 [place] 971572-11-25 01:29:00* Test Item Value Reference Range Interpretation Comme nts Calcium Lvl (test code = Calcium Lvl) 9.2 8.5-10.5 [facility]2022-11-25 01:29:00* Test Item Value Reference Range Interpretation Comme nts AGAP (test code = AGAP) 12.9 10.0-20.0 [place] 971572-11-25 01:29:00* Test Item Value Reference Range Interpretation Comme nts eGFR (test code = eGFR) 95 [facility]2022-11-25 01:29:00* Test Item Value Reference Range Interpretation Comme nts Lactic Acid Lvl (test code = Lactic Acid Lvl) 0.9 0.5-2.2 [place] 971572-11-25 01:29:00* Test Item Value Reference Range Interpretation Comme nts Total Protein (test code = T otal Protein) 7.6 6.4-8.4 [facility]2022-11-25 01:29:00* Test Item Value Reference Range Interpretation Comme nts Albumin Lvl (test code = Albumin Lvl) 3.1 3.5-5.0 [place] 971572-11-25 01:29:00* Test Item Value Reference Range Interpretation Comme nts ALANINE AMINOTRANSFERASE (te st code = ALANINE AMINOTRANSFERASE) 31 <=65 [place] 971572-11-25 01:29:00* Test Item Value Reference Range Interpretation Comme nts AST (test code = AST) 30 <=37 [place] 971572-11-25 01:29:00* Test Item Value Reference Range Interpretation Comme nts Alk Phos (test code = Alk Phos) 79 39-136 [place] 971572-11-25 01:29:00* Test Item Value Reference Range Interpretation Comme nts Bili Total (test code = Bili Total) 0.4 0.2-1.3 [place] 971572-11-25 01:29:00* Test Item Value Reference Range Interpretation Comme nts Bili Direct (test code = Bili Direct) 0.1 <=0.3 [place] [address]-11-25 01:29:00* Test Item Value Reference Range Interpretation Comme nts Bili Indirect (test code = B ping Indirect) 0.3 <=1.0 [address]11-25 01:29:00* Test Item Value Reference Range Interpretation Comme nts Globulin (test code = Globulin) 4.5 2.7-4.2 [place] 971572-11-25 01:29:00* Test Item Value Reference Range Interpretation Comme nts A/G Ratio (test code = A/G Ratio) 0.7 1 0.7-1.6 [place] 118912-11-25 01:29:00* Test Item Value Reference Range Interpretation Comme nts Ethanol Lvl (test code = Ethanol Lvl) no gt [place] 118912-11-25 01:29:00* Test Item Value Reference Range Interpretation Comme nts Etoh (%) (test code = Etoh (%)) no [place] 550742-11-25 01:29:00* Test Item Value Reference Range Interpretation Comme nts Lactic Acid Lvl (test code = Lactic Acid Lvl) 0.9 0.5-2.2 [place] 118912-11-25 01:29:00* Test Item Value Reference Range Interpretation Comme nts Total Protein (test code = T otal Protein) 7.6 6.4-8.4 [facility] TaylorLecyenzOHSAIJVUD4689-29-87 01:29:00* Test Item Value Reference Range Interpretation Comme nts Albumin Lvl (test code = Albumin Lvl) 3.1 3.5-5.0 [facility] TaylorXhdxcidOCOTKKMLH3070-47-28 01:29:00* Test Item Value Reference Range Interpretation Comme nts ALANINE AMINOTRANSFERASE (te st code = ALANINE AMINOTRANSFERASE) 31 <=65 [facility] TaylorBtrssogFSIAHFWSH2613-67-76 01:29:00* Test Item Value Reference Range Interpretation Comme nts AST (test code = AST) 30 <=37 [facility] TaylorQiefspwOWDPOULGJ0115-09-26 01:29:00* Test Item Value Reference Range Interpretation Comme nts Alk Phos (test code = Alk Phos) 79 39-136 [facility] TaylorHprsajbUAFGMJCGH3442-10-15 01:29:00* Test Item Value Reference Range Interpretation Comme nts Bili Total (test code = Bili Total) 0.4 0.2-1.3 [facility] TaylorJqvhhiqCMEIUUNQM1358-31-97 01:29:00* Test Item Value Reference Range Interpretation Comme nts Bili Direct (test code = Bili Direct) 0.1 <=0.3 [facility] TaylorPgojrvaJWOWDLOGX6832-10-04 01:29:00* Test Item Value Reference Range Interpretation Comme nts Bili Indirect (test code = B ping Indirect) 0.3 <=1.0 [facility] TaylorTqroubvKSBVMYCIH1964-78-68 01:29:00* Test Item Value Reference Range Interpretation Comme nts Globulin (test code = Globulin) 4.5 2.7-4.2 [facility] TaylorJdbdkiuRWREJSPGH2643-45-34 01:29:00* Test Item Value Reference Range Interpretation Comme nts A/G Ratio (test code = A/G Ratio) 0.7 1 0.7-1.6 [facility] TaylorRetbwxuDYKDLRZQY9631-43-56 01:29:00* Test Item Value Reference Range Interpretation Comme nts Total CK (test code = Total CK) 333 12-191 [facility] TaylorEocccbyKSHGDVTTR8214-68-26 01:29:00* Test Item Value Reference Range Interpretation Comme nts pH Jose (test code = pH Jose) 7.34 1 7.28-7.42 [facility] TaylorLocoropFNMHYEVZB3400-92-40 01:29:00* Test Item Value Reference Range Interpretation Comme nts pCO2 Jose (test code = pCO2 Jose) 49 38-52 [facility] TaylorNryyblcOLSCSCNYL8317-39-84 01:29:00* Test Item Value Reference Range Interpretation Comme nts pO2 Jose (test code = pO2 Jose) 26 20-49 [facility] TaylorWevjejsSHPWTQESW0437-71-18 01:29:00* Test Item Value Reference Range Interpretation Comme nts HCO3 Jose (test code = HCO3 Jose) 26 22-26 [facility] TaylorGfzveymNCSYISBJB6361-35-24 01:29:00* Test Item Value Reference Range Interpretation Comme nts BE Jose (test code = BE Jose) 0 -2-2 [facility] TaylorIafcwysCBCFEUSIE5486-74-12 01:29:00* Test Item Value Reference Range Interpretation Comme nts O2 Sat Jose (calc) (test code = O2 Sat Jose (calc)) 43.2 40.0-70.0 [facility] TaylorPethtytTLICLQVQW4693-59-47 01:29:00* Test Item Value Reference Range Interpretation Comme nts Temp Jose (test code = Temp Jose) 37.0 [facility] HospitalQulsgfkEETIGDHYHP9419-21-38 01:29:00* Test Item Value Reference Range Interpretation Comme nts PT (test code = PT) 13.2 s 12.0-14.7 [facility] HospitalMmrzxzmDLDYFGNHBH7757-00-14 01:29:00* Test Item Value Reference Range Interpretation Comme nts INR (test code = INR) 1.01 1 0.85-1.17 [facility] HospitalHjpmtxiDEFVRHDMUS3015-19-23 01:29:00* Test Item Value Reference Range Interpretation Comme nts PTT (test code = PTT) 31.2 s 22.9-35.8 [facility] HospitalIzlyxjuZKKVWJMLPP1899-12-83 01:29:00* Test Item Value Reference Range Interpretation Comme nts ACT (TEG) Rapid (test code = ACT (TEG) Rapid) 113 s 86-118 [facility] HospitalOyhkduiFKOJGZMKQT1819-48-19 01:29:00* Test Item Value Reference Range Interpretation Comme nts Split Point Rapid (test code = Split Point Rapid) 0.[address] [facility] HospitalEsdckrmVXYGXTZLTH3306-44-57 01:29:00* Test Item Value Reference Range Interpretation Comme nts R-time Rapid (test code = R- time Rapid) 0.7 min 0.4-0.7 [facility] HospitalQhwdlpvAQLSRLLHNQ2327-54-41 01:29:00* Test Item Value Reference Range Interpretation Comme nts K-time Rapid (test code = K- time Rapid) 0.8 min 0.6-2.3 [place] 173692-11-25 01:29:00* Test Item Value Reference Range Interpretation Comme nts Angle Rapid (test code = Ang le Rapid) 79 degrees 64-80 [facility] HospitalXhuvuzlTIFRMSZFXQ1010-82-43 01:29:00* Test Item Value Reference Range Interpretation Comme nts Max Amplitude Rapid (test co de = Max Amplitude Rapid) 72 mm 52-71 [facility] HospitalEvgvmbxJNNNOGSPVW3992-98-53 01:29:00* Test Item Value Reference Range Interpretation Comme nts G-value Rapid (test code = G -value Rapid) 12.8 5.0-11.6 [place] 173692-11-25 01:29:00* Test Item Value Reference Range Interpretation Comme nts Estimated % Lysis Rapid (bill t code = Estimated % Lysis Rapid) 0.0 <=7.5 [place] [address]-11-25 01:29:00* Test Item Value Reference Range Interpretation Comme nts WBC X 10x3 (test code = WBC X 10x3) 8.1 3.7-10.4 [facility] HospitalSzppgleFBDQNXEKFK9483-50-96 01:29:00* Test Item Value Reference Range Interpretation Comme nts RBC X 10x6 (test code = RBC X 10x6) 3.73 4.70-6.10 [facility] HospitalPwggrzqOEGVYORERX7324-02-84 01:29:00* Test Item Value Reference Range Interpretation Comme nts Hgb (test code = Hgb) 10.8 14.0-18.0 [place] [address]-11-25 01:29:00* Test Item Value Reference Range Interpretation Comme nts Hct (test code = Hct) 32.7 42.0-54.0 [place] 173692-11-25 01:29:00* Test Item Value Reference Range Interpretation Comme nts MCV (test code = MCV) 87.6 80.0-94.0 [place] 173692-11-25 01:29:00* Test Item Value Reference Range Interpretation Comme nts MCH (test code = MCH) 28.8 pg 27.0-31.0 [facility] HospitalJyrrildXMAISQSPVA1484-97-93 01:29:00* Test Item Value Reference Range Interpretation Comme nts MCHC (test code = MCHC) 32.9 32.0-36.0 [facility] HospitalJxwtlkpZJFQVCYDNK1018-56-37 01:29:00* Test Item Value Reference Range Interpretation Comme nts RDW (test code = RDW) 14.4 11.5-14.5 [facility] HospitalXkjtbbzNVOAIFHXRM9928-92-80 01:29:00* Test Item Value Reference Range Interpretation Comme nts Platelet (test code = Platelet) 194 133-450 [facility] HospitalDrvbwjmUCWGQIJTFB5523-81-55 01:29:00* Test Item Value Reference Range Interpretation Comme nts MPV (test code = MPV) 9.2 7.4-10.4 [facility] HospitalGrklcrrMDYINRXEFL3181-31-18 01:29:00* Test Item Value Reference Range Interpretation Comme nts PT (test code = PT) 13.2 s 12.0-14.7 [facility] HospitalOubhksjVOSMJEKPEQ2350-49-89 01:29:00* Test Item Value Reference Range Interpretation Comme nts INR (test code = INR) 1.01 1 0.85-1.17 [facility] HospitalKbgdobfAAFPYIRFDP2224-06-00 01:29:00* Test Item Value Reference Range Interpretation Comme nts PTT (test code = PTT) 31.2 s 22.9-35.8 [facility] HospitalClrlkfxDJNMYPODRW2616-26-79 01:29:00* Test Item Value Reference Range Interpretation Comme nts ACT (TEG) Rapid (test code = ACT (TEG) Rapid) 113 s 86-118 [facility] HospitalOdfufnuOBCXGVYEPX8095-27-83 01:29:00* Test Item Value Reference Range Interpretation Comme nts Split Point Rapid (test code = Split Point Rapid) 0.[address] [facility] HospitalQkgjapyQDWLXGJNTL2052-37-35 01:29:00* Test Item Value Reference Range Interpretation Comme nts R-time Rapid (test code = R- time Rapid) 0.7 min 0.4-0.7 [facility] HospitalLqvjadzSLXQLIJXVE7348-98-30 01:29:00* Test Item Value Reference Range Interpretation Comme nts K-time Rapid (test code = K- time Rapid) 0.8 min 0.6-2.3 [facility] HospitalIakhiuwIISWYMOWUH9922-72-74 01:29:00* Test Item Value Reference Range Interpretation Comme nts Angle Rapid (test code = Ang le Rapid) 79 degrees 64-80 [facility] HospitalQvbfhyoAXCMYQQSAH5453-07-51 01:29:00* Test Item Value Reference Range Interpretation Comme nts Max Amplitude Rapid (test co de = Max Amplitude Rapid) 72 mm 52-71 [facility] HospitalAkiwdhfXABQEMPYTI5393-57-51 01:29:00* Test Item Value Reference Range Interpretation Comme nts G-value Rapid (test code = G -value Rapid) 12.8 5.0-11.6 [facility] HospitalPxwyxalWMKUYJJOAI6017-98-88 01:29:00* Test Item Value Reference Range Interpretation Comme nts Estimated % Lysis Rapid (bill t code = Estimated % Lysis Rapid) 0.0 <=7.5 [place] 173692-11-25 01:29:00* Test Item Value Reference Range Interpretation Comme nts Segs (test code = Segs) 70.1 45.0-75.0 [facility] HospitalZkjsuzkQQFAIHZPXE5703-35-58 01:29:00* Test Item Value Reference Range Interpretation Comme nts Lymphocytes (test code = Lymphocytes) 18.2 20.0-40.0 [facility] HospitalWdbmmgnEESJAXRTFE4433-96-23 01:29:00* Test Item Value Reference Range Interpretation Comme nts Monocytes (test code = Monocytes) 7.2 2.0-12.0 [facility] HospitalTqbaewwXYDRQLCUCC8983-96-17 01:29:00* Test Item Value Reference Range Interpretation Comme nts Eosinophils (test code = Eosinophils) 4.0 <=4.0 [facility] HospitalExygdexWICCIHAIMI4997-68-29 01:29:00* Test Item Value Reference Range Interpretation Comme nts Basophils (test code = Basophils) 0.5 <=1.0 [place] 173692-11-25 01:29:00* Test Item Value Reference Range Interpretation Comme nts Neutrophils # (test code = N eutrophils #) 5.7 1.5-8.1 [facility] HospitalFsmdpxeHRQNXMPLYK5607-71-23 01:29:00* Test Item Value Reference Range Interpretation Comme nts Lymphocytes # (test code = L ymphocytes #) 1.5 1.0-5.5 [facility]NvrqmgzIASFSCPHUA0308-24-09 01:29:00* Test Item Value Reference Range Interpretation Comme nts Monocytes # (test code = Monocytes #) 0.6 <=0.8 [facility] HeightsQiruwhfBLYBJCXCPE3939-06-18 01:29:00* Test Item Value Reference Range Interpretation Comme nts Eosinophils # (test code = E osinophils #) 0.3 <=0.5 [facility] HeightsXyfdunhIOLMUMQFZB2854-92-49 01:29:00* Test Item Value Reference Range Interpretation Comme nts Ethanol Lvl (test code = Ethanol Lvl) no gt [facility]RpcgfwtUAAAKPEJUZ7183-40-61 01:29:00* Test Item Value Reference Range Interpretation Comme nts Etoh (%) (test code = Etoh (%)) no gt [facility] History and Physical Notes Date/Time Note Provider Source 2022-06-30 23:00:00 q6bybQvKxiUbZ2iPwA5v hMxmG56DXXOF4lzNusQ PbsVtLczQDF+qERhoUvGfeol78081-48-71B75: 00:00 * Opal Marie MD: PERFORMEvent Display: History and PhysicalAuthored Date: [id number] [facility] and examined the patient with Dr. Grossman on 06/28/22.I have reviewed the pertinent laboratory values and imaging studies.I agree with the assessment and plan as documented in the attached note and as detailed below:Possible mesenteric injury - Serial abdominal exams.L4-5 TP, L5 SP fractures - No interventionIliac bone fracture - Orthopedics consultedAortic aneurysm - Not trauma related. Follow up as outpatient.Admit to observation.Quita Reyes Lillian Shiow-Yu MDElectronically Signed: 07/01/22 15:0189260-6Zvwtlun and physicalLNHistory and physicalTXTAVAvailable for patient ztdg15782-8Gvlaubg and physicalLNNARRATIVEFormatted C-CDA narrative textMHIEMission Regional Medical Center2022-11-29T02:01:23 [facility] Notes Date/Time Note Provider Source 2022-06-29 12:14:47 vtHQczRl7t/dSxW0zdt/ pTkLRFmJcoN8eqeUc/ Oz1MTmP+IVApYI+kADlabOnd2J4265-40-65K8 2:14:47 * EXAM: XR LUMBAR SPINE 2 VIEWS DATE: 06/29/2022 4:57 INDICATION: - Uprights out of brace when able Nondisplaced left transverse process fractures of L3 and L4. Nondisplaced fracture of the L5 spinous process also seen by CT. COMPARISON: None. TECHNIQUE: AP and lateral radiographs of the lumbar spine. FINDINGS: 5 lumbar type, non-rib bearing vertebral bodies are present. Vertebral body heights are preserved. Mild degenerative disc disease throughout the lumbar spine with the largest anterior osteophytes at L2-3. There is scoliosis convex to the left centered at L3. Alignment is otherwise normal. The fractures of the vertebral appendages seen by CT are not visible on these radiographs. Abdominal aortic aneurysm with extensive calcified atherosclerosis in the abdominal aorta and the iliac arteries noted. IMPRESSION: Left L3 and L4 transverse process fractures and left L5 spinous process fracture are not visible on these radiographs. Alignment of the lumbar spine remains normal.[id number] ReportsLNDiagnostic ReportsTXTAVAvailable for patient [id number] ReportsLNNARRATIVEFormatted C-CDA narrative textMHIEMission Regional Medical Center2022-11-25T13:42:00 [facility] 2022-06-29 10:24:00 29uToh4hv7h7cJ7eWX72 mMnHPf5X0fQjtlND67 Igg7zFgMGjWHl1mInm+j3KmOkB0324-18-47R1 0:24:00 * EXAM: XR RIGHT FOOT 3 VIEWS DATE: 06/29/2022 9:41 INDICATION: - pain COMPARISON: None TECHNIQUE: AP, lateral and oblique radiographs of the foot FINDINGS: No acute fracture or malalignment is identified. Calcaneal enthesopathy is present. No soft tissue abnormality is identified. IMPRESSION: 1. No acute abnormality. 2. Calcaneal enthesophytes.[id number] ReportsLNDiagnostic ReportsTXTAVAvailable for patient ywot92588-0Fjalodssuy ReportsLNNARRATIVEFormatted C-CDA narrative textAd[facility]2022-11-25T11:48:00 [facility] 2022-06-29 10:24:00 cTI1H57mhQjvpzb0/gco yNregb7gW/tt10OncM 1FIw3m5aOuCS8woX6m/bq0+mJX7805-50-04Z0 0:24:00 * EXAM: XR LEFT SHOULDER 3 VIEWS DATE: 06/29/2022 9:41 INDICATION: - pain COMPARISON: None. TECHNIQUE: 3 views of the shoulder FINDINGS: No acute fracture or malalignment is identified. There is osteophyte formation of the acromioclavicular joint. Significant reduction in the acromiohumeral distance. No soft tissue abnormality is identified. IMPRESSION: No acute abnormality. Acromioclavicular and glenohumeral joint degenerative changes with reduction acromion humeral distance. Consider chronic rotator cuff injury.[id number] ReportsLNDiagnostic ReportsTXTAVAvailable for patient qldo41607-6Usxcikvehq ReportsLNNARRATIVEFormatted C-CDA narrative textAdventHealth [facility]2022-11-25T11:39:00 [facility] 2022-06-29 00:14:51 L8tiJ9SddZ/rZaRmWn0J ML1jaVqBRwbBvnCUNL ByVU80k2wOeDiwNk2wi0oqCBGQ5139-29-32W5 0:14:51 * EXAM: CT CHEST WITH CONTRAST EXAM: CT ABDOMEN AND PELVIS WITH CONTRAST DATE: 06/29/2022 0:12 INDICATION: Outside study. ADDITIONAL INFORMATION: 72 M w history of HTN and CAD with CABG present as a Transfer s/p fall while mowing his lawn, 1 day prior to presentation reports pain in his flanks and lower back. COMPARISON: None EXAM INFORMATION: [place] [facility] [place]. Axial CT images of the chest, abdomen, and pelvis were obtained. Coronal and sagittal reformatted images are provided. There is interval performance mid L1 is uploaded to PACS the study images. FINDINGS: FINDINGS: Lines, tubes, hardware: Surgical sternotomy wires seen in place. Lower Neck: Supraclavicular soft tissues are unremarkable. Thyroid gland is unremarkable. Thoracic Aorta and Mediastinum: Aberrant right subclavian artery. Mediastinal lymphadenopathy measuring up to 1.2 cm in the pretracheal region (2:39). Status post CABG with normal heart size. No pericardial effusion. Normal caliber of both pulmonary trunk 2.5 cm and ascending aorta 3.2 cm measuring the same level. Severe atherosclerotic calcification of the aortic arch, coronary arteries. Lungs, Pleura, Diaphragm: Subpleural and peripheral cystic changes particularly at the apices. Peripheral reticular opacities greater at the lung bases. Mild bronchiectasis and bronchial wall thickening. Patchy peripheral areas of groundglass and consolidation in the right greater than left lower lobes are not typical of contusion and may relate to atelectasis, infection, or aspiration. No pneumothorax. No pleural effusion. Other chest: Mild left axillary lymphadenopathy for example 9 mm subpectoral lymph node on 2:29. Liver and biliary tree: No evidence of injury. No biliary abnormality. Gallbladder: Single small stone within the gallbladder. Pancreas: No evidence of injury. Spleen: No evidence of injury. Adrenals: Normal morphology. Kidneys and ureters: No evidence of injury. Vascular calcifications present. No hydronephrosis. Symmetric enhancement. Bladder: Partially distended and unremarkable. Reproductive organs: Central prostatic calcification. Gastrointestinal tract: Localized area of heterogeneous increased attenuation within the fat along mesenteric vessels in the left abdomen right abdomen compatible with mesenteric injury. No changes in the bowel to suggest bowel injury. Peritoneum and retroperitoneum: No fluid collections or free air. Lymph nodes: No lymphadenopathy in the abdomen or pelvis.. Vasculature: 3.6 cm infrarenal fusiform abdominal aortic aneurysm with partial thrombosis. Severe atherosclerotic calcification of the abdominal aorta and branches. Thrombosed saccular aneurysm versus intramural hematoma along the right common iliac artery (2:190). Spine/ Bones: Nondisplaced fracture of the posterior left iliac bone at the level of the SI joint. Nondisplaced acute fracture of the left transverse process at L3 and L4. Additional nondisplaced fracture of the spinous process of L5. Soft tissues: Gas is noted within the musculature lateral to the left scapula, likely related to trauma. Stranding present in the subcutaneous fat laterally at the left hip and posteriorly at the left flank which may represent contusion. IMPRESSION: 1. Acute nondisplaced fracture of the left iliac wing at the level of the sacroiliac joint. Also fractures of the left transverse processes of L3 and L4 and of the spinous process of L5. 1. Localized stranding in the mesentery in the right lower quadrant. Compatible with mesenteric injury in the setting of trauma. (This was described in outside report, and was indicated to be concerning for mesenteric infarct.) No findings to indicate bowel injury. 2. Superficial contusion laterally at the left hip and posteriorly over the left flank. Gas within musculature lateral to the left scapula is also favored traumatic in origin. 3. Bilateral lower lobe right greater than left patchy groundglass opacities. May represent atelectasis, infection, or and/or aspiration. Appearance not typical of contusion. 4. Infrarenal abdominal aortic aneurysm (3.6 cm) and small thrombosed saccular aneurysm versus intramural hematoma at the right common iliac artery. 5. Mild left axillary and mediastinal lymphadenopathy, indeterminate. 6. Additional incidental findings detailed above.[id number] ReportsLNDiagnostic ReportsTXTAVAvailable for patient [id number] ReportsLNNARRATIVEFormatted C-CDA narrative textAdventHealth [facility]2022-11-25T15:01:00 [facility] 2022-06-28 20:16:53 d/SfKtifrZWmLmytW6Hn fUn6RVwStjNDL0dQOr wIeu6S/N97qLlBlGpYRBNMmX9o6458-38-22J7 0:16:53 * EXAMINATION: CT head without contrast DATE: 06/28/2022 INDICATION: Fell on concrete. Injured head. FINDINGS: Noncontrast CT images of the head are performed at an outside institution and submitted for reinterpretation following transfer. There is no intracranial hemorrhage or other brain injury. There is a moderate degree of global volume loss, chiefly manifested by increased CSF space over the convexities. The calvarium and skull base appear to be intact. There is a fluid level noted in the right maxillary sinus. IMPRESSION: Negative brain exam.[id number] ReportsLNDiagnostic ReportsTXTAVAvailable for patient [id number] ReportsLNNARRATIVEFormatted C-CDA narrative textAdventHealth [facility]2022-11-24T20:19:00 [facility] 2022-06-28 20:16:38 ckkZ36GLsBFwxMl/8afY vhqZbQuZ/itpnhtb8x 99K+VQxsPdBCKXx8EX1hHGVtSH8378-24-56P6 0:16:38 * EXAM: CT CERVICAL SPINE WITHOUT CONTRAST DATE: 06/28/2022 19:55 INDICATION: - outside study. Second interpretation requested. COMPARISON: None TECHNIQUE: Volumetric CT of the cervical spine is acquired without contrast. Axial, coronal and sagittal images are provided. IV contrast: None. DLP: Refer to CT protocol form [place] SECTION: ER FINDINGS: The spine is imaged from the skull base to the level of T1. Maintenance Groundskeeper: Noncontributory. Bones: No acute cervical spine fracture or malalignment is identified. Soft tissues: Posterior disc protrusion at C5-C6. No pre or paravertebral hematoma. IMPRESSION: 1. No acute fracture or malalignment of the cervical spine. 2. Posterior disc protrusion at C5-[id number] ReportsLNDiagnostic ReportsTXTAVAvailable for patient [id number] ReportsLNNARRATIVEFormatted C-CDA narrative textAdventHealth [facility]2022-11-25T00:01:00 [facility]
[2023-10-28 15:08] VITALS: BMI 38.5
[2023-10-28] MEDS ORDERED: TRYPSIN TOP PRN (15:35)
[2023-10-28] MEDS ORDERED: BALSAM PERU TOP PRN ×2 (15:35→19:53)
[2023-10-28] MEDS ORDERED: CASTOR OIL TOP PRN ×2 (15:35→19:53)
[2023-10-28] MEDS ORDERED: BISACODYL 10 MG RECTAL SUPP PR PRN (15:40)
[2023-10-28] MEDS: CEFUROXIME 250 MG TAB PO SCH (16:24)
[2023-10-28] MEDS: METOPROLOL TAR 25 MG TAB PO SCH (17:28)
[2023-10-28 17:51] LABS: Specific Gravity 1.024 (1.005-1.030); Sqamous Epithelial None Seen /HPF (None Seen); Urine Bacteria <20 /HPF (<20); Urine Bilirubin NEGATIVE (Negative); Urine Blood Negative (Negative); Urine Clarity Clear (Clear); Urine Color Yellow (Yellow); Urine Culture Reflex Order NOT NEEDED; Urine Glucose NEGATIVE (Negative); Urine Ketones NEGATIVE (Negative); Urine Micro Reflex YN NO BILL MICROSCOPIC; Urine Mucus Slight /HPF (None Seen); Urine Nitrite NEGATIVE (Negative); Urine Protein TRACE (Negative); Urine RBC <5 /HPF (None Seen); Urine Urobilinogen Normal (Normal); Urine WBC <5 /HPF (<5); Urine pH 5.5 (5.0-7.0)
[2023-10-28] MEDS: ALBUTEROL 2.5 MG/3 ML NEB SOL NEB SCH (18:59)
[2023-10-28] MEDS: IPRATROPIUM BROM 0.5MG/2.5ML NEB SCH (18:59)
[2023-10-28] MEDS: MELATONIN 5 MG TABLET PO SCH (20:25)
[2023-10-28] MEDS: ATORVASTATIN 40 MG TAB PO SCH (20:25)
[2023-10-28] MEDS: APIXABAN 2.5 MG TABLET PO SCH (20:25)
[2023-10-28] MEDS: GABAPENTIN 300 MG CAP PO SCH (20:26)
--- NOTE | 2023-10-29 01:24 | HP ---
Date of Admission: 10/28/2023 Time Of Service: 6 p.m. Chief Complaint: "I fell off a ladder and broke some bones." History Of Present Illness: Mr. Ruelas is a 73-year-old patient with hypertension; dyslipidemia; coronary artery disease, status post coronary artery bypass grafting, 2012; abdominal aortic aneurys m; carotid artery stenosis, status post stent; depression, who fell off a ladder on October 09, 2023. Sepideh umana said the ladder was braced up against a pole. He was trying to change a light bulb when the ladder swung around the pole and he did not tie himself off. He fell between the ladder and his truck cris ing his back and face. He did not have his phone with him and could not reach help for about 3 hours , and he was only able to be assisted up after his friends came by about 3 hours later. He was taken to Hospital, where imaging of his head identified a zygomatic fracture which, per the pat ient, is on the left face, although a note from the patient's outside hospital did indicate a right z ygomatic fracture. In addition, there was a spinal and sternal fracture and epidermal cord hematoma. He was transferred to [facility] for higher level of care and evaluated by Neurosurg shasha, which indicated no need for an acute surgical intervention at that time. CT angiogram of the est showed a blunt aortic injury, triggered pseudoaneurysm between the left subclavian and an aberran t right subclavian artery. The patient underwent the thoracic endovascular aortic repair procedure o n 10/10/2023, stenting of the left subclavian artery and was initially admitted to the surgical ICU f or further management. While there, he underwent posterior spinal fusion of L2 through L5. Followin g the procedure, he developed chest pain and EKG showed ST-segment changes with elevated troponins co nsistent with ST-segment elevation myocardial infarction. He had left heart catheterization on 10/10, and found to have CORTES-LAD widely patent, SVG- artery also widely patent, and the RI MA artery was not engaged likely due to coronary steal. He did have emergency bypass on 10/11 of the right carotid subclavian artery. On 10/24, his sputum cultures did grow gram-positive cocci in pair s and budding yeasts and gram-negative rods. He was seen by the ID service and Rocephin started. He did receive IV Protonix for GE reflux disease. He was put on multiple pain modalities along with an LSO for spinal precautions and evaluated by Physical Therapy. He was found to require moderate to m ax assist with bed mobilization due to spinal precautions for his transfers and ambulation with a rol [employer] walker, where he ambulated about 15 to 25 feet before becoming fatigued, did require seated rest breaks. His pain, he said, with medication will be managed, but at significant levels would be arou nd 01/12. He did require near total assistance for activities of daily living. As a result of his co mplex medical issues and his acute state, the patient was functioning significantly below his prior l evel of functioning and would be unable to function well at home and would be best suited in an [facility] acute inpatient rehabilitation facility, and is therefore admitted for physical and occupationa l therapy along with daily medical management, 24 hours' jail, and Social Service evaluati on for discharge planning. Past Medical History: As noted above. Surgical History: As noted above. Allergies: NO KNOWN DRUG ALLERGIES. Current Medications: Tylenol 1000 mg every 6 hours as needed, albuterol nebulizer 2.5 mg every 6 rashaad rs as needed, Eliquis 2.5 mg twice daily, aspirin 81 mg daily, Lipitor 40 mg at bedtime, Tessalon Per les 100 mg 3 times daily, Dulcolax 10 mg daily, Ceftin 500 mg twice daily, gabapentin 300 mg 3 times daily, Atrovent nebulizer 0.5 mg nebulized every 6 hours as needed, lidocaine patch apply topically d aily to the back and thigh, Prinivil 10 mg daily, melatonin 10 mg at bedtime, Robaxin 500 mg 3 times daily, Lopressor 25 mg twice daily, Zofran 4 mg every 6 hours as needed, Protonix 40 mg daily, Senoko t-S 2 at bedtime, Zoloft 50 mg daily, Ultram 50 mg every 6 hours. Family History: Noncontributory. Social History: The patient denies any recent alcohol, tobacco, or IV drug use. Review of Systems: fall in the morning, he has significant vertigo, which is mitigated by Zofran. The vertig o occurs on sitting up and with Zofran, he actually does a lot better with the nausea associated with his vertigo. The x-rays and imaging studies have been reviewed. Current Level Of Functioning: He is at setup assistance for eating, oral hygiene. Dependent for ananth leting, showering. Upper body dressing, moderate assistance. Lower body dressing, dependent. Donni ng and doffing footwear, dependent. Rolling from left to right is at moderate assistance. Sit to ly ing and lying to sitting is dependent. Sit to stand, dependent. Transfer from bed to chair to toile t, dependent. Ambulation, dependent with a rolling walker for 25 feet. Physical Examination: Vital Signs: Blood pressure 117/56, pulse 79, respiratory rate 16, temperature 97.1, oxygen saturati on 96%. Weight 238 pounds, height 5 feet 6 inches, BMI 38.5. General: Mr. Ruelas is resting in bed. He has resolved any significant bruising on his face fro m the zygomatic fracture, which he on his left cheek where the fracture he says is, but ag ain it is over 3 weeks ago and no significant bruising obvious at this point. He is otherwise normoc ephalic. He does have TLSO brace, but it is unstrapped as he is lying in bed. He is to wear it when out of bed and sitting upright in the chair and with all physical activity. Chest: Otherwise clear. Abdomen: Soft. Extremities: No significant edema, cyanosis. Skin: He has good hemostasis in is back surgical site. Neurologic: In terms of cranial nerves, he has no focal cranial nerve deficits. He has no expressiv e or receptive aphasias. Upper extremities show no focal deficits proximally and distally. Lower ex tremities: Diffuse weakness noted. There is more weakness proximally around 3/5 to 4/5 and distally in the lower extremities, hip flexion and extension around 3/5 to 4/5 and his foot dorsiflexion and plantar flexion 5-/5. His sensation is intact in the upper and lower extremities. Coordination inta ct. Gait is slow, but intact. Laboratory Studies: White blood cell count 9.1, hemoglobin 9.4, hematocrit 28.4, platelets 248. Sod ium 138, potassium 3.6, glucose 112, BUN 21, creatinine 0.8. Calcium 8.7, magnesium 2.1. Rehab And Medical Assessment And Plan: Mr. Ruelas is a 73-year-old patient, admitted to the reha bilitation unit with impairment category of 17, with major multiple traumas without brain or spinal i njury. His impairment group code is 14.9, other multiple trauma. Etiologic diagnosis is aortic pseu doaneurysm. Additional etiologic diagnoses: L4 burst compression fracture with spinal stenosis, sta tus post decompression in addition to an L1 vertebral body and transverse process fracture. Addition ally, zygomatic fracture on the left. Other comorbidities: Anemia, coronary artery disease, recent myocardial infarction, chest pain, decr eased mobility, decreased physical functioning, dyslipidemia, hypertension, and debility. In [facility], he has a left spinal epidural hematoma from L2 through L5 and the burst fracture again at L4 with stenosis, status post decompression. Plan: 1.He will have physical and occupational therapy 3 hours a day, 5/7 days. 2.If need be, speech therapy 4.5 hours, 5/7 days. 3.Will continue Tylenol 1000 mg every 6 hours for pain related to his multiple fractures, albuterol nebulizer for improving his pulmonary function. Will have Eliquis 2.5 mg twice daily for DVT prophyl axis, aspirin 81 mg daily for stroke and DVT risk reduction, Lipitor 40 mg at bedtime for dyslipidemi a, Tessalon Perles for cough. Will have Zofran for nausea and meclizine as needed for vertigo. Lido thaddeus patch for pain, Prinivil 10 mg daily for hypertension, melatonin for insomnia, Robaxin for musc le spasms, Protonix for GE reflux, Senokot-S for constipation, tramadol added to Tylenol for pain, an d Zoloft for depression. Comorbidities That Are Impacting His Rehabilitation: Currently, he has major multiple fractures, whi ch are producing pain up to about 6/10. The pain modalities will be adjusted as appropriate in addit ion to neuromodulators and muscle relaxant dosage adjustments can be made. He is to wear the TLSO br raisa while out of bed and upright, which will help to stabilize his lower back. While in bed, he may remove the brace. He does have significant risk of myocardial infarction given his recent aortic gordy ve repair and stroke, and again on aspirin plus Eliquis. Rehab Specific Plan: 1.Mr. Ruelas will have physical, occupational, and if need be speech therapy for 3.5 hours, 5/7 days to improve his ability to transfer from bed to chair to toilet to shower, to ambulate 250 feet w ith modified independence, up and down 10 steps with modified independence, propel a wheelchair with modified independence 250 feet. 2.Given his complex medical condition and risk of further complications, rehabilitation cannot be sa clemente or effectively performed at a lower level of facility such as jail. 3.Mr. Ruelas has a good understanding of the process of admission to the rehabilitation facility and how he will benefit from physical, occupational, and speech therapy. Barriers To Discharge: Currently, he does have a significant risk of worsening if he falls and fall precautions were to be adhered to at all times with gait belt and 2-wheeled walker, and doing all the rapy sessions. In addition, he will have the back brace on out of bed to minimize the risk of additi onal injury. If need be, antibiotics may have to be continued. At this point, DVT prophylaxis will address his risk of clots, but he is not at any further risk of infection. Length Of Stay: About 12 days. Disposition: Home with Home Health to continue therapy. Prognosis: Good. Rehab Specific Goals: 1.Become independent with upper and lower body dressing, toileting, donning and doffing his footwear , showering as well. 2.Independently ambulate 250 feet with a rolling walker. 3.Independently propel a wheelchair 250 feet. 4.Independently go up and down 10 steps with bilateral handrails. 5.Independently perform all cognitive functioning. The above goals were reviewed with Mr. Ruelas and he is in agreement. By signing this document, I acknowledge I personally performed a full physical examination on Mr. Chio bryan no later than 24 hours after his admission to the inpatient rehabilitation facility and deter mined that he is able to tolerate the above course of treatment at an intensive level for reasonable period of time. A detailed individualized plan of care for him will be completed by hospital day 4 based on the preadmission screen, history and physical, and therapy evaluations. CRUZ/JUSTIN Voice ID: [id number]
[2023-10-29 04:27] LABS: Absolute Eosinophils 0.1 K/uL (0-0.5); Absolute Monocytes 0.6 K/uL (0.1-1.3); Absolute Neutrophil 5.9 K/uL (1.8-8.0); Basophils % 0.6 % (0-1.3); Eosinophils % 1.3 % (0-4.4); Hematocrit 26.7 % (39.6-49.0); Hemoglobin 8.8 g/dL (13.6-17.9); Lymphocytes % 12.9 % (15.3-44.8); MCH 29.9 pg (27.0-35.0); MCHC 32.9 g/dL (32.0-36.0); MCV 90.9 fL (80-100); MPV 9.4 fL (7.6-11.3); Monocytes % 7.6 % (3.3-12.3); Neutrophils % 77.6 % (41.7-73.7); Nucleated Red Blood Cells % 0.1 % (0-0); Platelets 223 thou/uL (152-406); RBC Red Blood Cell Count 2.94 M/uL (4.33-5.43); Red Cell Distribution Width 17.9 % (12.1-15.2)
[2023-10-29] MEDS: METOPROLOL TAR 25 MG TAB PO SCH ×2 (04:33→17:12)
[2023-10-29] MEDS: CALCIUM CARBONATE CHEW 500MG TAB PO PRN (04:33)
[2023-10-29 04:47] LABS: Albumin 2.5 g/dL (3.4-5.0); Anion Gap 8.1 mEq/L (5.0-15.0); Magnesium 2.4 mg/dL (1.6-2.4); Potassium 4.1 mEq/L (3.5-5.1); Prealbumin 12.9 mg/dL (20-40)
[2023-10-29] MEDS: ASPIRIN EC 81 MG TAB PO SCH (07:35)
[2023-10-29] MEDS: LIDOCAINE 4% PATCH TOP SCH (07:35)
[2023-10-29] MEDS: PANTOPRAZOLE 40MG TABLET PO SCH (07:35)
[2023-10-29] MEDS: lisinopriL 10 MG TAB PO SCH (07:37)
[2023-10-29] MEDS: SERTRALINE HCL 50 MG TAB PO SCH (07:38)
[2023-10-29] MEDS: ONDANSETRON 4 MG (ODT) TAB PO PRN (09:36)
--- NOTE | 2023-10-29 16:59 | EKG ---
Test Date: 2023-10-29 Test Time: 14:39:49 Keyboard Instrument Tuner: CARMELO MEASUREMENT RESULTS: Intervals: Rate: 94 AK: 202 QRSD: 94 QT: 364 QTc: 455 [place]: P: 57 AK: 202 QRS: 8 T: 163 INTERPRETIVE STATEMENTS: Sinus rhythm with premature atrial complexes Possible Left atrial enlargement Anteroseptal infarct, age undetermined Abnormal ECG No previous ECG available for comparison Electronically Signed On 10-29-23 16:59:19 CDT by Dandy Newton
--- NOTE | 2023-10-30 01:56 | PN ---
Date of Progress Note: 10/29/2023 Time Of Service: 1:45 p.m. Subjective: Mr. Toro is doing well, has no complaints, is improving and happy with the therapy so far despite his multiple fractures that are traumatic, he is actually in very good spirits. Denies any significant fevers or chills, myalgias and arthralgias at the fracture sites, on the face, lower extremities, and back. Objective: Vital Signs: Blood pressure 110/58, pulse 85, respiratory rate 16, temperature 96.9, oxy gen saturation 99%. General: Mr. Toro is resting in his bed, eating lunch. He is in no acute distress. HEENT: He is normocephalic. Healing zygomatic fracture on the left, no obvious external signs of an y injury there. Chest: Clear. Abdomen: Soft. Extremities: Show no significant edema, cyanosis. Laboratory Studies: White blood cell count 7.6, hemoglobin 8.8, platelets 223. Sodium 136, potassiu m 4.1, chloride 102, carbon dioxide 30, BUN 27, creatinine 0.99, glucose 111, prealbumin 12.9, albumi n 2.5, magnesium 2.4, calcium 8.3. Urinalysis shows 5-10 hyaline casts, and trace protein, otherwise normal. X-ray/imaging: No new x-rays or imaging. Medications: Tylenol 1000 mg every 6 hours as needed, albuterol nebulizer 2.5 mg every 6 hours as ne eded, Eliquis 2.5 mg twice daily, aspirin 81 mg daily, Lipitor 40 mg at bedtime, Tessalon Perles 100 mg 3 times daily, Dulcolax suppository 10 mg as needed for constipation, Tums 500 mg 4 times daily. He is on Ceftin 500 mg twice daily, gabapentin 300 mg 3 times daily, Atrovent 0.5 mg nebulizer every 6 hours, lidocaine patch 1 daily, Prinivil 10 mg daily, melatonin 10 mg at bedtime, Robaxin 500 mg 3 times daily, Lopressor 12.5 mg twice daily, Zofran 4 mg every 6 hours as needed, Senokot-S 2 at bedti me, Zoloft 50 mg daily, tramadol 50 mg every 6 hours as needed. He did have an electrocardiogram earlier today due to potential worry for ST-segment prolongation sonja or to giving Zofran. The study showed normal sinus rhythm, possible left atrial enlargement, and atr ial septal infarct, age undetermined. Otherwise, no other abnormalities on the EKG. Progress Made With Physical And Occupational Therapies: Today, with physical therapy, maximum assist ance for [id number] transfers and to edge of bed. Toileting was dependent. Bathing, minimum assi stance, upper body dressing, minimum assistance. Lower body dressing was dependent. Today, maximum assistance for ambulating 10 feet, mobilized wheelchair 30 feet 4 times, 40 feet 3 times with moderat e assistance. Mr. Toro was just brought into the unit yesterday. He is making fair progress so far with his physical and occupational therapy. Assessment: Mr. Toro is a 73-year-old patient admitted to the rehabilitation unit with major m ultiple fractures without brain or spinal injury. 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 In addition, has muscle spasms, GE ref lux, depression, and is at significant risk of aspiration pneumonia. He has Zofran for nausea and Li pitor for dyslipidemia. Plan: 1.Continue with physical, occupation, and speech therapy for 3 hours a day, 5 of 7 days. 2.Continue all comorbid condition medications as noted. Comorbidities That Are Impacting His Rehabilitation: Multiple fractures who make it somewhat difficu lt for him to mobilize. He does have the TLSO brace when out of bed and upright and mobilizing. He is now beginning to do well. He did have an EKG showing no ST-segment changes or no QT prolongation. He is doing very well. He did have aortic valve repair and is on asp irin and Eliquis and I will continue. LB/MODL Voice ID: [id number] Report ID: [id number]
[2023-10-30] MEDS: TRAMADOL HCL 50 MG TAB PO PRN (05:04)
[2023-10-30] MEDS: ENSURE ENLIVE 237 ML CAN PO SCH (14:20)
[2023-10-30] MEDS: methocarbamoL 500 MG TAB PO PRN (19:52)
[2023-10-31 04:22] LABS: Absolute Eosinophils 0.1 K/uL (0-0.5); Absolute Lymphocytes (CBC) 1.1 K/uL (0.7-4.9); Absolute Monocytes 0.6 K/uL (0.1-1.3); Absolute Neutrophil 5.2 K/uL (1.8-8.0); Basophils % 0.6 % (0-1.3); Eosinophils % 1.4 % (0-4.4); Hematocrit 26.1 % (39.6-49.0); Hemoglobin 8.6 g/dL (13.6-17.9); Lymphocytes % 16.2 % (15.3-44.8); MCH 30.1 pg (27.0-35.0); MCHC 33.1 g/dL (32.0-36.0); MCV 90.7 fL (80-100); MPV 9.6 fL (7.6-11.3); Monocytes % 8.2 % (3.3-12.3); Neutrophils % 73.6 % (41.7-73.7); Platelets 190 thou/uL (152-406); RBC Red Blood Cell Count 2.88 M/uL (4.33-5.43); Red Cell Distribution Width 17.6 % (12.1-15.2)
[2023-10-31 04:39] LABS: Albumin 2.6 g/dL (3.4-5.0); Anion Gap 10.1 mEq/L (5.0-15.0); Magnesium 2.3 mg/dL (1.6-2.4); Potassium 4.1 mEq/L (3.5-5.1); Prealbumin 14.9 mg/dL (20-40)
--- NOTE | 2023-10-31 23:18 | PN ---
Date of Progress Note: 10/31/2023 Time Of Service: 1:40 p.m. Subjective: Mr. Toro is in his room in between therapy sessions. He is happy with his therapy . He is about to mobilize with a wheelchair and the therapists is there. He has a gait belt in plac e. He does not have any new complaints. Objective: No fevers or chills. No significant myalgias, arthralgias, rash. No other issues. His pain from his multiple fractures is managed well. Physical Examination: Vital Signs: Blood pressure 122/58, pulse 84, respiratory rate of 16, temperature 97.3, oxygen satur ation 98%. General: He is resting comfortably. He is in no significant distress. HEENT: He is normocephalic, atraumatic at this point. No significant issues in terms of his fall an d fractures in his lower back and the zygomatic region, which is healing very well with no obvious ex ternal changes seen and otherwise doing well on his examination. Laboratory Studies: White blood cell count 7.0, hemoglobin 8.6, platelets are 90. Sodium 134, potas sium 4.1, chloride 100, carbon dioxide 28, BUN 33, creatinine 0.92, glucose 116, calcium 8.4, magnesi um 2.3, prealbumin 14.9, albumin 2.6. X-ray/imaging: No new x-rays or imaging. Medications: His medications have been reviewed. We will continue antibiotics as noted previously, which is Ceftin from 10/27 to 11/03 taking 500 mg twice daily; gabapentin 300 mg 3 times daily for hi s neuropathic pain; Lipitor for dyslipidemia; Eliquis for DVT prophylaxis. Continue with Ultram as w ell for his pain, Senokot-S for constipation, Protonix for GE reflux, Ensure Enlive malnutrition. Progress Made With Physical, Occupational, And Speech Therapy: Today with physical therapy, ambulate d 50 feet 6 times with rolling walker and contact guard assist. Mobilized the wheelchair 250 feet wi th standby assistance. With occupational therapy, educated on the proper mechanics for [id number] and transfers. The patient's and son were educated on assisting him as he returns home. With erlin davalos, he recalled 3 of 3 unrelated words after 5 minutes and 7 minutes increments. Sequenced 4 step s with 60% accuracy and moderate cues. Mr. Toro is making good progress in the rehabilitation unit towards recovery from injuries and pseudoaneurysm after his fall from a ladder. Assessment: Mr. Toro is a 73-year-old patient in rehabilitation, but major multiple fractures without brain or spine injury. He has an aortic pseudoaneurysm from his fall and L4 burst compressio n fracture, spinal stenosis, status post decompression. He has L1 vertebral transverse process fract ure and left zygomatic fracture. He has gastroesophageal reflux, dyslipidemia, being treated for asp iration pneumonia. Plan: 1.Continue physical, occupational, and speech therapy for 3-1/2 hours 5 of 7 days. 2.He has comorbid conditions, which are listed. He is continuing management of that with medication s as noted including for DVT prophylaxis. Comorbidities That Are Impacting Rehabilitation: The patient's back issues mitigated when he is ambu lating or upright with the back brace. He has medication for nausea without any issues and is doing well. LB/MODL Voice ID: [id number] Report ID: [id number]
--- NOTE | 2023-11-01 10:16 | RAD REPORT ---
EXAM DESCRIPTION: RAD - Chest Single View - 11/01/2023 10:02 am CLINICAL HISTORY: Increased shortness of breath Chest pain. COMPARISON: No comparisons FINDINGS: Portable technique limits examination quality. Extensive bilateral pulmonary opacities are present likely representing pulmonary edema. The heart is moderately enlarged. No displaced fractures.Sternotomy wires. Aortic stent material. IMPRESSION: Significant pulmonary edema pattern.
[2023-11-01] MEDS: FUROSEMIDE 20 MG/ 2ML VIAL IV ONE ×3 (10:52→14:30)
--- NOTE | 2023-11-01 11:49 | EKG ---
Test Date: 2023-11-01 Test Time: 11:03:54 Registered Route Associate: CARMELO MEASUREMENT RESULTS: Intervals: Rate: 89 WI: 212 QRSD: 102 QT: 358 QTc: 435 [place]: P: 55 WI: 212 QRS: 53 T: 167 INTERPRETIVE STATEMENTS: Sinus rhythm with 1st degree AV block Possible Left atrial enlargement Anteroseptal infarct, age undetermined Abnormal ECG Compared to ECG 10/29/2023 14:39:49 First degree AV block now present Atrial premature complex(es) no longer present Myocardial infarct finding still present Electronically Signed On 11-01-23 11:48:17 CDT by Dandy Newton
[2023-11-01] MEDS: FERROUS SULFATE 325 MG TAB PO SCH (12:20)
[2023-11-01] MEDS: FE SULF/FA/VIT B COMP & C TAB PO SCH (12:20)
--- NOTE | 2023-11-01 13:13 | P.RH.PN ---
Estimated Length of Stay: 14 Expected Discharge Date: 11/08/23 Discharge Disposition Plan: Home Family Support: Yes Correction Goal: Mobility, Transfers, Self Care Vital Signs: Last Vital Signs Temp 97.8 F 11/01/23 08:00 Pulse 90 11/01/23 11:26 Resp 18 11/01/23 08:00 BP 117/52 L 11/01/23 11:26 Pulse Ox 98 11/01/23 08:00 Laboratory: Laboratory Last Values WBC 7.00 thou/uL (4.3-10.9) 10/31/23 03:50 RBC 2.88 M/uL (4.33-5.43) L 10/31/23 03:50 Hgb 8.6 g/dL (13.6-17.9) L 10/31/23 03:50 Hct 26.1 % (39.6-49.0) L 10/31/23 03:50 MCV 90.7 fL (80-100) 10/31/23 03:50 MCH 30.1 pg (27.0-35.0) 10/31/23 03:50 MCHC 33.1 g/dL (32.0-36.0) 10/31/23 03:50 RDW 17.6 % (12.1-15.2) H 10/31/23 03:50 Plt Count 190 thou/uL (152-406) 10/31/23 03:50 MPV 9.6 fL (7.6-11.3) 10/31/23 03:50 Neutrophils % 73.6 % (41.7-73.7) 10/31/23 03:50 Lymphocytes % 16.2 % (15.3-44.8) 10/31/23 03:50 Monocytes % 8.2 % (3.3-12.3) 10/31/23 03:50 Eosinophils % 1.4 % (0-4.4) 10/31/23 03:50 Basophils % 0.6 % (0-1.3) 10/31/23 03:50 Absolute Neutrophils 5.2 K/uL (1.8-8.0) 10/31/23 03:50 Absolute Lymphocytes 1.1 K/uL (0.7-4.9) 10/31/23 03:50 Absolute Monocytes 0.6 K/uL (0.1-1.3) 10/31/23 03:50 Absolute Eosinophils 0.1 K/uL (0-0.5) 10/31/23 03:50 Absolute Basophils 0.0 K/uL (0-0.5) 10/31/23 03:50 Sodium 134 mEq/L (136-145) L 10/31/23 03:50 Potassium 4.1 mEq/L (3.5-5.1) 10/31/23 03:50 Chloride 100 mEq/L (98-107) 10/31/23 03:50 Carbon Dioxide 28 mEq/L (21-32) 10/31/23 03:50 Anion Gap 10.1 mEq/L (5.0-15.0) 10/31/23 03:50 BUN 33 mg/dL (7-18) H 10/31/23 03:50 Creatinine 0.92 mg/dL (0.70-1.30) 10/31/23 03:50 Est GFR (CKD-EPI) 87 ml/min (=/>90) L 10/31/23 03:50 Glucose 116 mg/dL (74-106) H 10/31/23 03:50 POC Glucose 126 mg/dL (65-120) H 10/28/23 19:39 Calcium 8.4 mg/dL (8.5-10.1) L 10/31/23 03:50 Magnesium 2.3 mg/dL (1.6-2.4) 10/31/23 03:50 Albumin 2.6 g/dL (3.4-5.0) L 10/31/23 03:50 Prealbumin 14.9 mg/dL (20-40) L 10/31/23 03:50 Urine Color Yellow (Yellow) 10/28/23 16:42 Urine Clarity Clear (Clear) 10/28/23 16:42 Urine pH 5.5 (5.0-7.0) 10/28/23 16:42 Ur Specific [place] 1.024 (1.005-1.030) 10/28/23 16:42 Glucose (UA)(Auto) Negative (Negative) 10/28/23 16:42 Urine Ketones Negative (Negative) 10/28/23 16:42 Urine Blood Negative (Negative) 10/28/23 16:42 Urine Nitrite Negative (Negative) 10/28/23 16:42 Urine Bilirubin Negative (Negative) 10/28/23 16:42 Urine Urobilinogen Normal (Normal) 10/28/23 16:42 Ur Leukocyte Esterase Negative Marya/uL (Negative) 10/28/23 16:42 Urine RBC <5 /HPF (None Seen) 10/28/23 16:42 Urine WBC <5 /HPF (<5) 10/28/23 16:42 Ur Squamous Epith Cells None seen /HPF (None Seen) 10/28/23 16:42 Urine Bacteria <20 /HPF (<20) 10/28/23 16:42 Hyaline Casts 5-10 /LPF (None Seen) H 10/28/23 16:42 Urine Mucus Slight /HPF (None Seen) 10/28/23 16:42 Urine Culture Reflexed Not needed 10/28/23 16:42 Urine Total Protein Trace (Negative) H 10/28/23 16:42 Weight: 238 lb 9.6 oz Closed Surgical Incision Present: Yes Negative Pressure Wound Therapy Present: No Physician Update: He had an episode of low blood pressure with increased pulmonary edema on chest x-ray. Given IV lasix. Improved ADLs and transfers with family education. Met 4/5 short term goals. 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 BIMS 15, SLUMS 21, poor hearing with only one hearing aid at a time. Met 1/4 speech goals. Met 4/4 short term physical therapy toals. 50' x 2 with walker and 150' with RW. 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 Please see the Rehabilitation Signature page for all necessary signatures.
[2023-11-01] MEDS ORDERED: FUROSEMIDE 20 MG TABLET PO SCH (17:00)
[2023-11-01] MEDS: FUROSEMIDE 20 MG TABLET PO SCH (17:23)
[2023-11-01] MEDS: POTASSIUM CL SA 10 MEQ TAB PO SCH (20:08)
[2023-11-01] MEDS: DOCUSATE NA/SENNA CONC 1 TAB PO PRN (20:09)
[2023-11-01] MEDS: BENZONATATE 100 MG CAP PO PRN (20:09)
[2023-11-01] MEDS: IPRATROPIUM BROM 0.5MG/2.5ML NEB PRN (20:43)
[2023-11-01] MEDS: ALBUTEROL 2.5 MG/3 ML NEB SOL NEB PRN (20:44)
[2023-11-02] MEDS: FUROSEMIDE 20 MG/ 2ML VIAL IV SCH (08:15)
--- NOTE | 2023-11-02 08:35 | RAD REPORT ---
EXAM DESCRIPTION: Rose Single View11/02/2023 8:09 am CLINICAL HISTORY: Chest pain COMPARISON: October 31, 2023 FINDINGS: Mild improvement in the diffuse bilateral pulmonary opacities. Small pleural effusions Cardiomegaly. Postsurgical changes involve the chest IMPRESSION: Mild improvement CHF
[2023-11-02 09:08] LABS: Anion Gap 10.1 mEq/L (5.0-15.0); Potassium 4.1 mEq/L (3.5-5.1)
[2023-11-03] MEDS: FUROSEMIDE 20 MG TABLET PO SCH (09:00)
[2023-11-03] MEDS: lisinopriL 10 MG TAB PO SCH (09:38)
[2023-11-04] MEDS: FUROSEMIDE 20 MG/ 2ML VIAL IV ONE (15:04)
[2023-11-04] MEDS: FUROSEMIDE 20 MG/ 2ML VIAL IV SCH (17:14)
--- NOTE | 2023-11-05 00:50 | PN ---
Date of Progress Note: 11/04/2023 Time Of Service: 1 p.m. Subjective: Mr. Ruelas is in the gym doing therapy. He is feeling somewhat better, although sti ll has shortness of breath. Therapist noted he walked 80 feet today with rest stop and last week whe n his lungs was more filled with fluid due to CHF, he only walked 10 feet requiring 10 breaks. Review of Systems: No fevers or chills, mild shortness of breath, with oxygen via nasal cannula. No rash. No headache. No ongoing chest pain. No abdominal issues or other issues. Physical Examination: VITAL SIGNS: Blood pressure 133/61, pulse 89, respiratory rate 16, temperature 96.3. GENERAL: Mr. Ruelas is sitting comfortably, he is in no significant distress. HEENT: Appears normocephalic and atraumatic. Sclerae are anicteric. LUNGS: Decreased breath sounds, but improving. ABDOMEN: Soft, no significant edema or cyanosis noted. He does have fractures in the zygomatic region on the left, that is healing well and lumbar region he aling well as well. Laboratory Studies: No new laboratory studies except on the , sodium 134, potassium 4.1, chlorid e 100, carbon dioxide 28, BUN 25, creatinine 0.91, glucose 148, calcium 9.0. X-ray Imaging: Chest x-ray done on 11/02/2023, showed mildly improving CHF pattern and electrocardio gram on 11/01/2023, showed sinus rhythm, first-degree AV block, possible left atrial enlargement, ant eroseptal infarct, age undetermined. Medications: Medications have been reviewed. He is on albuterol nebulizer. He has Lasix 20 mg IV t wice a day added to the oral instead of the oral Lasix. He has Atrovent nebulizer on board in additi on to Prinivil 10 mg daily. Hemocyte plus daily. All those medications are continued and unchanged. Progress Made With Physical And Occupational Therapy: Today with physical therapy, completed multipl e vvu-wx-xyjej transfers and cupja-mj-inmfc transfers with contact guard to minimum assistance. He d id have the LSO brace adjusted, required minimum assistance. He mobilized a wheelchair 85 feet twice and also mobilized 90 feet with a rolling walker with standby assistance. In addition, later on, he ambulated 30 feet, 75 feet, and 85 feet, with a rolling walker with contact guard assistance. He wa s able to go up and down 2 steps. Does have several steps at home and is working hard to improve his ability to negotiate steps safely. Occupational therapy; again noted edema in the bilateral lower e xtremities, but that is improving. His breathing has also improved. He did have 3 L of oxygen via n inocencia cannula as he did exercises. With speech therapy, recalled 2 sets of 3 unrelated pictures each after 5 minutes. He used organizational thinking skills to name divergent objects with 70% accuracy and maximum assistance. Mr. Ruelas is making improved progress with his physical, occupational, and speech therapy and he is on ongoing IV Lasix to help with this pulmonary congestion. Assessment: Mr. Ruelas is a 73-year-old patient admitted to rehabilitation unit with a traumatic aortic pseudoaneurysm, L4 burst compression fracture with spinal stenosis status post decompression and L1 vertebral transverse process fracture in addition to a left zygomatic fracture. He is making improved progress with physical, occupational, and speech therapy. He has GE reflux, dyslipidemia, a nd received treatment for aspiration pneumonia. Plan: 1.Continue with physical, occupational, and speech therapy for 3-1/2 hours, 5/7 days. 2.Comorbid conditions, which are listed above are managed by continuing his current medications incl uding now IV Lasix for his pulmonary congestion, which is improving. He has daily weights and I's an d O's being monitored and those are improving. Comorbidities That Are Continuing To Impacting His Rehabilitation: Currently, the pulmonary congesti on with some requirement for 3 L of oxygen via nasal cannula is improving, but is still a challenge t o his rehabilitation. He has continued treatments for urinary tract infection. LB/MODL Voice ID: [id number] Report ID: [id number]
--- NOTE | 2023-11-05 07:10 | RAD REPORT ---
EXAM DESCRIPTION: RAD - Chest Single View - 11/05/2023 4:19 am CLINICAL HISTORY: comparison with previous x-ray COMPARISON: Chest Single View dated 11/02/2023; Chest Single View dated 11/01/2023 FINDINGS: Lines: None. Lungs: Widespread interstitial airspace disease. Decreased lung volumes. Pleural: Probable bilateral pleural effusions. Cardiac: Cardiomegaly. Stent graft in the thoracic aorta. Mediastinum: Within normal limits. Bones: No acute fractures. Other: Surgical clips in the neck. Sternotomy. IMPRESSION: Severe pulmonary edema with pleural effusions which is similar to marginally worsened co mpared with 11/02/2023.
[2023-11-05] MEDS: FUROSEMIDE 40 MG/4 ML VIAL IV SCH (17:29)
--- NOTE | 2023-11-05 23:11 | PN ---
Date of Progress Note: 11/05/2023 Time Of Service: 1:10 p.m. Subjective: Mr. Ruelas reports some more shortness of breath and difficulty mobilizing and he be lieves the swelling in his leg has worsened. In fact, a repeat x-ray did show that he had slight wor sening of pleural effusion and his Lasix has now been increased. He is still doing physical therapy despite his condition. Review of Systems: Mild worsening shortness of breath with oxygen via nasal cannula. Mild increased swelling in the low er extremities. Otherwise, no other positives on systems review. Physical Examination: Vital Signs: Blood pressure 106/53, pulse 84, respiratory rate 16, temperature 97.7, oxygen saturati on 99%. His weight 215 pounds. He did gain 2 pounds over the last 2 days. HEENT: Otherwise, he again is normocephalic, atraumatic. Sclerae anicteric. Lungs: Decreased breath sounds bilaterally. Extremities: Shows 1 to 2+ edema. He has no focal deficits. His multiple fractures are healing yeimy y well and has included zygomatic fracture, L4 and L1 fractures, which are doing well. Laboratory Studies: No new blood work. X-ray/imaging: As noted, chest x-ray report shows severe pulmonary edema with pleural effusions, whi ch is similar to marginally worsened compared to 11/02/2023. Medications: Note, his medications have been adjusted such that the Lasix is now 40 mg IV twice cassandra y. Does have potassium replacement. He has I's and O's measured with daily weights. He will contin ue with nebulizers and Eliquis 2.5 mg twice daily for DVT prophylaxis and other medications as noted. Progress Made With Physical, Occupational, And Speech Therapy: Today with physical therapy, he did a mbulate 85 feet 3 times with minimum assistance, on 2 L of oxygen via nasal cannula. Propelled a whe elchair 100 feet and 75 feet twice. With standby assistance, he did multiple ohk-hw-wbugg transfers, dvkms-hv-lhtpa transfers with standby to contact guard assistance. With occupational therapy, david ated 4 minutes 25 seconds of bilateral upper extremity aerobic exercise, did have multiple rest break s. With speech therapy, recalled 10/10 details on a paragraph with 100% accuracy, used alternating a ttention skills with 98% accuracy, organization skills used with 80% accuracy and minimum assistance for concrete concepts. Despite his worsening pulmonary edema, Mr. Ruelas is actually making good progress with physical, occupational, and speech therapy. Assessment: Mr. Ruelas is a 73-year-old patient in the rehabilitation unit with a traumatic aort ic pseudoaneurysm, L4 burst compression fractures with spinal stenosis, status post decompression, L1 vertebral transverse process fracture, and left zygomatic fracture. As noted, he is making good pro tabby with physical, occupational, and speech therapy. His comorbidities are GE reflux, dyslipidemia , received antibiotics for aspiration pneumonia, edema in the lower extremities, and debility. Plan: 1.Continue with physical, occupational, and speech therapy for 3.5 hours, 5 of 7 days. 2.Comorbid medications were continued by increasing his Lasix to IV 40 mg daily with daily I's and O 's, daily weights to clear the fluid from his lungs. Comorbidities That Are Impacting His Rehabilitation: His big issue at this point is worsening pulmon mami edema or CHF. He is receiving Lasix at a higher rate. The hospital staff did note that the mervin ent's family brought him a burger and fries and he is actually eating food from outside and is now pa ssing a fluid restriction which is around 1500 cc daily. Those are likely factors contributing to hi s worsening pulmonary congestion. The patient and family will be advised to decrease the sodium intake and not to eat high-salt foods. He is on a low-sodium diet. LB/MODL Voice ID: [id number] Report ID: [id number]
[2023-11-06 04:15] LABS: Anion Gap 7.1 mEq/L (5.0-15.0); Magnesium 2.2 mg/dL (1.6-2.4); Potassium 4.1 mEq/L (3.5-5.1)
--- NOTE | 2023-11-06 13:10 | P.RH.PN ---
Estimated Length of Stay: 14 Expected Discharge Date: 11/12/23 Discharge Disposition Plan: Home Family Support: Yes Senior Care Goal: Mobility, Transfers, Self Care Vital Signs: Last Vital Signs Temp 96.9 F 11/06/23 06:43 Pulse 94 H 11/06/23 08:05 Resp 19 11/06/23 08:11 BP 113/56 L 11/06/23 08:05 Pulse Ox 97 11/06/23 08:11 Laboratory: Laboratory Last Values WBC 7.00 thou/uL (4.3-10.9) 10/31/23 03:50 RBC 2.88 M/uL (4.33-5.43) L 10/31/23 03:50 Hgb 8.6 g/dL (13.6-17.9) L 10/31/23 03:50 Hct 26.1 % (39.6-49.0) L 10/31/23 03:50 MCV 90.7 fL (80-100) 10/31/23 03:50 MCH 30.1 pg (27.0-35.0) 10/31/23 03:50 MCHC 33.1 g/dL (32.0-36.0) 10/31/23 03:50 RDW 17.6 % (12.1-15.2) H 10/31/23 03:50 Plt Count 190 thou/uL (152-406) 10/31/23 03:50 MPV 9.6 fL (7.6-11.3) 10/31/23 03:50 Neutrophils % 73.6 % (41.7-73.7) 10/31/23 03:50 Lymphocytes % 16.2 % (15.3-44.8) 10/31/23 03:50 Monocytes % 8.2 % (3.3-12.3) 10/31/23 03:50 Eosinophils % 1.4 % (0-4.4) 10/31/23 03:50 Basophils % 0.6 % (0-1.3) 10/31/23 03:50 Absolute Neutrophils 5.2 K/uL (1.8-8.0) 10/31/23 03:50 Absolute Lymphocytes 1.1 K/uL (0.7-4.9) 10/31/23 03:50 Absolute Monocytes 0.6 K/uL (0.1-1.3) 10/31/23 03:50 Absolute Eosinophils 0.1 K/uL (0-0.5) 10/31/23 03:50 Absolute Basophils 0.0 K/uL (0-0.5) 10/31/23 03:50 Sodium 135 mEq/L (136-145) L 11/06/23 03:48 Potassium 4.1 mEq/L (3.5-5.1) 11/06/23 03:48 Chloride 102 mEq/L (98-107) 11/06/23 03:48 Carbon Dioxide 30 mEq/L (21-32) 11/06/23 03:48 Anion Gap 7.1 mEq/L (5.0-15.0) 11/06/23 03:48 BUN 26 mg/dL (7-18) H 11/06/23 03:48 Creatinine 0.94 mg/dL (0.70-1.30) 11/06/23 03:48 Est GFR (CKD-EPI) 85 ml/min (=/>90) L 11/06/23 03:48 Glucose 100 mg/dL (74-106) 11/06/23 03:48 POC Glucose 126 mg/dL (65-120) H 10/28/23 19:39 Calcium 8.4 mg/dL (8.5-10.1) L 11/06/23 03:48 Magnesium 2.2 mg/dL (1.6-2.4) 11/06/23 03:48 Albumin 2.6 g/dL (3.4-5.0) L 10/31/23 03:50 Prealbumin 14.9 mg/dL (20-40) L 10/31/23 03:50 Urine Color Yellow (Yellow) 10/28/23 16:42 Urine Clarity Clear (Clear) 10/28/23 16:42 Urine pH 5.5 (5.0-7.0) 10/28/23 16:42 Ur Specific [place] 1.024 (1.005-1.030) 10/28/23 16:42 Glucose (UA)(Auto) Negative (Negative) 10/28/23 16:42 Urine Ketones Negative (Negative) 10/28/23 16:42 Urine Blood Negative (Negative) 10/28/23 16:42 Urine Nitrite Negative (Negative) 10/28/23 16:42 Urine Bilirubin Negative (Negative) 10/28/23 16:42 Urine Urobilinogen Normal (Normal) 10/28/23 16:42 Ur Leukocyte Esterase Negative Marya/uL (Negative) 10/28/23 16:42 Urine RBC <5 /HPF (None Seen) 10/28/23 16:42 Urine WBC <5 /HPF (<5) 10/28/23 16:42 Ur Squamous Epith Cells None seen /HPF (None Seen) 10/28/23 16:42 Urine Bacteria <20 /HPF (<20) 10/28/23 16:42 Hyaline Casts 5-10 /LPF (None Seen) H 10/28/23 16:42 Urine Mucus Slight /HPF (None Seen) 10/28/23 16:42 Urine Culture Reflexed Not needed 10/28/23 16:42 Urine Total Protein Trace (Negative) H 10/28/23 16:42 Weight: 215 lb 11.2 oz Wound Present: No Closed Surgical Incision Present: Yes Negative Pressure Wound Therapy Present: No Physician Update: He has severe pulmonary edema with incresed IV lasix to 40 mg twice daily. He responded well to memory strategies. Met 4/4 short term and 3/4 half-way physical therapy goals. WC 250' with SBA, RW 150' and SBA. Met most occupational therapy goals. Summary: Patient's care plan and half-way goals have been reviewed and revised as necessary. Please see the Rehabilitation Signature page for all necessary signatures.
[2023-11-07 04:12] LABS: Absolute Basophils 0.1 K/uL (0-0.5); Absolute Eosinophils 0.2 K/uL (0-0.5); Absolute Lymphocytes (CBC) 1.3 K/uL (0.7-4.9); Absolute Monocytes 0.6 K/uL (0.1-1.3); Absolute Neutrophil 4.4 K/uL (1.8-8.0); Basophils % 1.1 % (0-1.3); Eosinophils % 2.7 % (0-4.4); Hematocrit 27.8 % (39.6-49.0); Hemoglobin 9.1 g/dL (13.6-17.9); Lymphocytes % 20.6 % (15.3-44.8); MCHC 32.7 g/dL (32.0-36.0); MCV 91.7 fL (80-100); MPV 9.5 fL (7.6-11.3); Monocytes % 8.6 % (3.3-12.3); Platelets 165 thou/uL (152-406); RBC Red Blood Cell Count 3.03 M/uL (4.33-5.43); Red Cell Distribution Width 17.4 % (12.1-15.2)
[2023-11-07 04:36] LABS: Albumin 2.9 g/dL (3.4-5.0); Magnesium 2.1 mg/dL (1.6-2.4); Prealbumin 16.5 mg/dL (20-40)
[2023-11-07] MEDS: FUROSEMIDE 40 MG TABLET PO SCH (07:50)
[2023-11-07] MEDS: ACETAMINOPHEN 500 MG TAB PO PRN (07:51)
--- NOTE | 2023-11-07 07:52 | RAD REPORT ---
EXAM DESCRIPTION: RADChest Single View11/07/2023 6:00 am CLINICAL HISTORY: Chest pain. Abnormal chest radiograph. Compare w/previous xray COMPARISON: Chest Single View dated 11/05/2023; Chest Single View dated 11/02/2023; Chest Single View d ated 11/01/2023 TECHNIQUE: Portable AP view of the chest. FINDINGS: Partial improvement of central fluffy opacities and background interstitial prominence. Re sidual small left more than right pleural effusions. No pneumothorax. The cardiomediastinal contours are unchanged. IMPRESSION: Improving central pulmonary edema pattern.
--- NOTE | 2023-11-07 15:37 | RAD REPORT ---
EXAM DESCRIPTION: RAD - Abdomen 1 View (KUB) - 11/07/2023 3:29 pm CLINICAL HISTORY: abd pain Pain COMPARISON: No comparisons FINDINGS: The bowel gas pattern is non-obstructive. No evidence of free air or pneumatosis. Vertebro plasty cement is noted L1 vertebral body. Skin janis are present midline. Hardware is present in the lumbar spine with postsurgical changes. IMPRESSION: Negative examination.
--- NOTE | 2023-11-07 18:09 | P.PN ---
Subjective Date of Service: 11/07/23 Patient is complaining of intermittent abdominal pain worse with laying. He relates the abdominal pain to gas. He stated his lower extremity swelling have significantly improved. Physical Examination - Vital Signs Temperature: 96.9 F Blood Pressure: 126/62 Pulse: 77 Respirations: 19 Pulse Ox (%): 97 - Studies Laboratory Data (last 24 hrs) 11/07/23 11/07/23 03:56 03:56 WBC 6.50 Hgb 9.1 L Hct 27.8 L Plt Count 165 Sodium 136 Potassium 4.0 BUN 29 H Creatinine 0.99 Glucose 117 H Magnesium 2.1 Assessment And Plan - Plan Physical examination General: Alert and oriented x3, NAD, HEENT: Conjunctiva not pale, anicteric sclera Neck: Supple, no elevated JVD Heart: Heart sounds 1 and 2 normal, regular rhythm, normal rate, 1+ bilateral lower extremity pitting edema Lungs: Clear to auscultation bilaterally, adequate breath sounds bilaterally, no rhonchi or crackles. Abdomen: Soft, obese, nondistended, nontender, normal bowel sounds. Extremities: No tenderness, no deformity Skin: Normal skin turgor, no rash, no nodules or ulcers. Surgical wound-back and right supraclavicular area healing well, all sutures intact. Neuro: No focal motor deficit. Normal speech. Psychiatry: Normal mood, no agitation. Assessment and plan Progress Made With Physical, Occupational, And Speech Therapy: Patient is tolerating physical therapy and ambulating with minimal assistance. He is stable on 2 L oxygen by nasal cannula. Patient was able to use leg optical sales associate from sit to supine without any assist. Patient was able to complete a simulated car transfer with CGA. He also completed gait training with RW, patient managed 120', 110' and 85' with SBA. Patient completed wheelchair mobility training for 150' Independently. Mr. Ruelas is actually making good progress with physical, occupational, and speech therapy. Assessment: Mr. 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 As noted, he is making good progress with physical, occupational, and speech therapy. His comorbidities are GE reflux, dyslipidemia, received antibiotics for aspiration pneumonia, edema in the lower extremities, and debility. Plan: Continue with physical, occupational, and speech therapy as scheduled. Respiratory condition has improved with IV Lasix. IV Lasix transition to oral Lasix Continue to monitor intake and output. Fluid restriction, low-sodium diet. Abdominal pain nonspecific probably related gas. Tums as needed. Comorbidities That Are Impacting His Rehabilitation: Shortness of breath secondary to CHF limiting his stamina. Patient able to ambulate more distances compared to yesterday after treatment of pulmonary edema with Lasix. Overall patient functional status is improving with therapy.
[2023-11-08 07:30] VITALS: TEMP 96.9
[2023-11-08 10:37] VITALS: BP 121/58; O2SAT 97
--- NOTE | 2023-12-01 20:56 | DS ---
Date of Discharge: 11/08/2023 Discharge Diagnoses: Major multiple traumas without brain or spinal cord injury including multiple b roken bones. There is an L4 burst compression fracture with spinal stenosis, status post decompressi on. There is an L1 vertebral body and transverse process fracture and a left zygomatic fracture. In addition, anemia, coronary artery disease, recent myocardial infarction, chest pain, decreased mobil ity, decreased physical functioning, dyslipidemia, hypertension, left spinal epidural hematoma from L 2-L5. Again, burst compression fracture L4 with stenosis, status post decompression. Discharge Condition: Good. Allergies: NO KNOWN DRUG ALLERGIES. WEIGHTBEARING STATUS TOLERATED. Medications: Tramadol 50 mg every 6 hours as needed, Zoloft 50 mg daily, Robaxin 500 mg 3 times cassandra y, Protonix 40 mg daily, Lopressor 25 mg twice daily, melatonin 5 mg at bedtime, Zestril 10 mg daily, lidocaine patch apply topically daily, gabapentin 300 mg 3 times daily, Plavix 75 mg daily, Tessalon Perles 100 mg 3 times daily, Lipitor 40 mg at bedtime, aspirin 81 mg daily, Tylenol Extra Strength 5 00 mg every 6 hours as needed, potassium 10 mEq twice daily, Hemocyte Plus 1 tablet daily, Lasix 40 m g twice daily, ferrous sulfate 325 mg daily, Ensure Enlive 237 mL twice daily, Senokot S 2 at bedtime , Tums 500 mg every 6 hours as needed. Laboratory Studies: White blood cell count 5.0, hemoglobin 9.1, platelets 165. Sodium 136, potassiu m 4.0, chloride 102, carbon dioxide 31, BUN 29, creatinine 0.99, glucose 117, calcium 8.7. Magnesium 2.1. Prealbumin 16.5, albumin 2.9. X-ray/imaging: Chest x-ray done 3 times, last on 11/07/2023. Last study showed improving central pu lmonary edema pattern. KUB x-ray done on 11/07/2023 showed was a negative study. Bowel gas showed n onobstructive pattern. No evidence of free air or pneumatosis. There is vertebroplasty cement noted at L1 vertebral body and electrocardiogram done on 10/29/2023 showed sinus rhythm, premature atrial complexes, possible left atrial enlargement, anteroseptal infarct, age undetermined. Repeat electroc ardiogram done on 11/01/2023, sinus rhythm, first-degree AV block, possible left atrial enlargement. Anteroseptal infarct, age undetermined. Synopsis Of Events That Led To Admission: Mr. Ruelas is a 73-year-old patient with multiple medi natasha problems, who fell off a ladder on October 09, 2023. He was trying to change a light bulb when the ladder swung around a pole. He had a ladder braced up against . He fell between and his t ruck hitting the back and face and he actually remained in this position for about 3 hours. He was u nable to [employer] [facility] for assistance. Eventually, he came to hospital was identified to have multip le fractures as noted including zygomatic fracture burst compression fracture L4. His CT angiogram o f the chest showed a blunt aortic injury that likely triggered a pseudoaneurysm between the left subc lavian and an aberrant right subclavian artery. He did have a thoracic endovascular aortic repair on 10/10/2023. There was stenting of the left subclavian artery and was admitted to the surgical ICU f or further management. He also had a posterior spinal fusion of L3-L5. EKG showed elevated ST segme nts, elevated troponins consistent with ST-segment elevated myocardial infarction. He had a cardiac catheterization on 10/11/2023, found to show that there was a CORTES to LAD anastomosis that was widely patent. He did also require emergency bypass on 10/11 with a right carotid subclavian artery. Sput um cultures did grow gram-positive cocci in pairs, budding yeast and gram-negative rods. He was seen by ID service and treated with Rocephin. He also received IV Protonix for GE reflux. He was put on LSO for spinal precautions and evaluated for physical therapy. He was found to require maximal assi stance for bed mobilization due to spinal cautious and to ambulate with a rolling walker only 15 to 2 5 feet with max assist with rest breaks. Pain was around 6/10. He as a result of his complex medica l condition and significant decline in function, he was referred for inpatient rehabilitation and the n had inpatient rehabilitation services. While hospitalized, pain was well managed. Continue all me dications ruling out systemic infection, electrolyte abnormalities, issues of sleep, bowel movements were all addressed, pneumonia ruled out. Additional cardiac issues with 2 EKGs were followed. Progress Made With Physical, Occupational, And Speech Therapy: By discharge with physical therapy, b ed mobility, decreased strength, decreased endurance and pain, did use a rolling walker, stand pivot transfer. No limitations. He did ambulate 120 feet with a rolling walker. Steps, it was difficult, done just 2 steps had poor balance, decreased strength, decreased endurance, limited range of motion , poor safety awareness. Wheelchair mobilization, covered 150 feet standby assistance. He did meet most of long-term and all short-term goals. Durable medical equipment needs met. He was discharged home to continue home services. With occupational therapy, with his pseudoaneurysm again noted, he w as independent with toileting, showering independent, eating independent, grooming independent, lower body dressing independent, upper body dressing independent, and donning and doffing footwear indepen dent. Did meet all of the long-term and short-term goals. Discharged home to continue therapy. Reg arding speech, minimum assistance for memory, independent for pragmatics. His auditory comprehension is independent, verbal expression independent, conversation was 100% intelligible. BIMS score was 1 5, it is normal. SLUMS score improved from 21 to 23 indicating mild cognitive impairment. Followup: With Cardiothoracic Surgery and primary care physician. CRUZ/JUSTIN Voice ID: [id number] Report ID: [id number]
== END 2023-11-08 11:35 | disposition home health service (06) | DRG 949 ==
LOC: 5TH 14:30
PROVIDERS: ADMIT Psychiatry & Neurology Neurology with Special Qualifications in Child Neurology; ATTEND Psychiatry & Neurology Neurology with Special Qualifications in Child Neurology
DX: Z48.811 Encounter for surgical aftercare following surgery on the nervous system (principal); J69.0 Pneumonitis due to inhalation of food and vomit; N39.0 Urinary tract infection, site not specified; I25.2 Old myocardial infarction; Z47.89 Encounter for other orthopedic aftercare; S02.40FD Zygomatic fracture, left side, subsequent encounter for fracture with routine healing; I44.0 Atrioventricular block, first degree; D64.9 Anemia, unspecified; R11.0 Nausea; I71.9 Aortic aneurysm of unspecified site, without rupture; I25.10 Atherosclerotic heart disease of native coronary artery without angina pectoris; I10 Essential (primary) hypertension; E78.5 Hyperlipidemia, unspecified; F32.A Depression, unspecified; R53.81 Other malaise; K21.9 Gastro-esophageal reflux disease without esophagitis; R60.0 Localized edema; Z95.1 Presence of aortocoronary bypass graft
CPT/HCPCS: 36415; 71045; 74018; 80048; 81001; 82040; 82947; 83735; 84134; 85025; 87086; 87088; 92523; 93005; 94010; 94640; 97110; 97116; 97129; 97163; 97165; 97530; 97542; J1940; J2001; J7613; J7644; Q0162